=== PATIENT | male | born 1930 | race Caucasian/White ===

== ENCOUNTER 2020-09-01 15:32 | Inpatient (IN) | payer OTHER ==
--- OUTSIDE RECORDS SUMMARY | 2020-09-01 15:35 | XMS REPORT | Continuity of Care Document ---
:1930 Author Organization [facility] t Address 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 8-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 Mellitus 00:00: Practi c with with 00 e peripheral 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 [facility] bianca bianca 7-14 Family intestinal Intestinal 00:00: Pr actic obstructio Obstructio 00 e n n Hyperlipid Hyperlipid Problem Active [facility] emia emia 4-21 Family 00:00: Practic 00 e Multiple Multiple Problem Active 2018-05 Perez ge complicati Complicati 1-18 [facility] ons due to ons Due to 00:00: Pr actic type 2 Type 2 00 e diabetes Diabetes mellitus Mellitus Dementia Dementia Problem Active Perez ge 7-01 Family 00:00: Practic 00 e Essential Essential Problem Active Owen alec hypertensi Hypertensi 7- [facility] on on 00:00: Practic 00 e 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 Social History Smoking Status Start Date Stop Date Source Former Smoker Moises Billings P raccrystal Medications Ordered Filled Start Stop Current Ordering Indication Dosage Frequency Signature Comments Components Source Medication Medication Date Date Medication? Clinician (SIG) Name Name atorvastati atorvastati No 1 Q1D atorvastat [facility] n 40 mg n 40 mg in 40 mg Famil y tablet Take tablet Take tablet Practic 1 tablet 1 tablet Take 1 e every day every day tablet by oral by oral every day route. route. by oral route. donepezil 5 donepezil 5 No 1 Q1D donepezil [place] mg tablet mg tablet 5 mg Famil y Take 1 Take 1 tablet Practic tablet tablet Take 1 e every day every day tablet by oral by oral every day route at route at by oral bedtime. bedtime. route at bedtime. famotidine famotidine No 1 BID famotidine [facility] 20 mg 20 mg 20 mg Family tablet Take tablet Take tablet Practic 1 tablet 1 tablet Take 1 e twice a day twice a day tablet by oral by oral twice a route. route. day by oral route. losartan 50 losartan 50 No 1 Q1D losartan [place] mg tablet mg tablet 50 mg Fami ly Take 1 Take 1 tablet Practic tablet tablet Take 1 e every day every day tablet by oral by oral every day route. route. by oral route. metformin metformin No 1 BID metformin [facility] 500 mg 500 mg 500 mg Family tablet Take tablet Take tablet Practic 1 tablet 1 tablet Take 1 e twice a day twice a day tablet by oral by oral twice a route. route. day by oral route. omeprazole omeprazole No 1capsul Q1D omeprazole [facility] 40 mg 40 mg e(s) 40 mg Family capsule,del capsule,del capsule,de Practic ayed ayed layed e release release release Take 1 Take 1 Take 1 capsule capsule capsule every day every day every day by oral by oral by oral route. route. route. tamsulosin tamsulosin No 1capsul Q1D tamsulosin [facility] 0.4 mg 0.4 mg e(s) 0.4 mg Family capsule capsule capsule Practi c Take 1 Take 1 Take 1 e capsule capsule capsule every day every day every day by oral by oral by oral route in route in route in the the the evening. evening. evening. Immunizations Ordered Immunization Filled Immunization Date Status Commen ts Source Name Name influenza, influenza, 2018-01-29 Completed [facility] injectable, injectable, 00:00:00 Practice quadrivalent quadrivalent Vital Signs Vital Name Observation Time Observation Value Comments Source Height 2020-08-11 00:00:00 66 [in_i] [facility] BMI (Body Mass 2020-08-11 00:00:00 24.2 kg/m2 [facility] Index) Practice Body Weight 2020-08-11 00:00:00 150 [lb_av] [facility] Height 2020-05-12 00:00:00 66 [in_i] [facility] Procedures This patient has no known procedures. Plan of Care Planned Activity Planned Date Details Comments Source Future Appointment 2020-11-10 00:00:00 Moises Luevano [facility] [address]; Practice [address] [facility], [place] [address] Encounters Start End Encounter Admission Attending Care Care Encounter Source Date/Time Date/Time Type Type Clinicians Facility Department ID 2020-08-31 2020-08-31 Protective Service Specialist Milli Almonte [facility] [id number] 14:59:24 15:14:24 Visit Lab Main [place] [id number] [place] [id number] Professmervat [id number] [address] 2020-08-11 2020-08-11 [facility] [place] - [id number] [facility] 00:00:00 00:00:00 Moises Burch Famil y ORTHODONTIC ASSISTANT: [id number] - Pract [address], [email or web address] [place] [phone] , Ph. 2020-05-12 2020-05-12 [facility] [place] - [id number] [facility] 00:00:00 00:00:00 Moises Burch Famil y ORTHODONTIC ASSISTANT: [address] Medical - Pract fortunato [place], [email or web address] [address] [address] , Ph. 2019-12-17 2019-12-17 [facility] [place] - [id number] [facility] 00:00:00 00:00:00 [facility] beryl bolton, ORTHODONTIC ASSISTANT: Medical - Practi c [address] [email or web address] [facility], [address] [phone] , Ph. 2019-11-12 2019-11-12 [facility] [place] - [id number] V [facility] 00:00:00 00:00:00 [facility] beryl bolton, ORTHODONTIC ASSISTANT: Medical - Practi c [address] [email or web address] [facility], [address] [phone] , Ph. 2019-08-19 2019-08-19 Shamika [facility] [place] - [id number] [facility] 00:00:00 00:00:00 [facility] beryl rankin, ORTHODONTIC ASSISTANT: Medical - Practi c [address] [email or web address] [address] [phone] , Ph. Results This patient has no known results.
--- NOTE | 2020-09-01 17:10 | EDPHYS ---
Physician Documentation [facility] Name: Silas Kirk Age: 89 yrs Sex: Male : 1930 Arrival Date: 09/01/2020 Time: 15:33 Bed 28 Private MD: ED Physician Damien Miramontes HPI: 09/01 17:01 This 89 yrs old Male presents to ER via Wheelchair with complaints of sent by claribel Goff, abn labs. 17:01 The patient presents with scrotal pain, with swelling, with erythema. Onset: The claribel symptoms/episode began/occurred 5 day(s) ago. Modifying factors: The symptoms are alleviated by nothing, remaining still. red tender scrotum. Associated signs and symptoms: The patient has no apparent associated signs or symptoms. Severity of symptoms: At their worst the symptoms were moderate. Severity of symptoms: At their worst the symptoms were moderate in the emergency department the symptoms are unchanged. The patient has not experienced similar symptoms in the past. Historical: - Allergies: 15:57 Milk Containing Products; tw2 15:57 Aspirin; tw2 - PSHx: 15:57 Hernia repair; tw2 - Immunization history:: Adult Immunizations. - Social history:: Smoking status: . - Family history:: not pertinent. ROS: 17:01 Constitutional: Negative for fever, chills, and weight loss, Eyes: Negative for injury, claribel pain, redness, and discharge, ENT: Negative for injury, pain, and discharge, Neck: Negative for injury, pain, and swelling, Cardiovascular: Negative for chest pain, palpitations, and edema, Respiratory: Negative for shortness of breath, cough, wheezing, and pleuritic chest pain, Abdomen/GI: Negative for abdominal pain, nausea, vomiting, diarrhea, and constipation, Back: Negative for injury and pain, MS/Extremity: Negative for injury and deformity, Neuro: Negative for headache, weakness, numbness, tingling, and seizure, Psych: Negative for depression, anxiety, suicide ideation, homicidal ideation, and hallucinations, Allergy/Immunology: Negative for hives, rash, and allergies, Endocrine: Negative for neck swelling, polydipsia, polyuria, polyphagia, and marked weight changes, Hematologic/Lymphatic: Negative for swollen nodes, abnormal bleeding, and unusual bruising. 17:01 : Positive for of the left testicle and right testicle. Exam: 17:01 Constitutional: This is a well developed, well nourished patient who is awake, alert, claribel and in no acute distress. Head/Face: Normocephalic, atraumatic. Eyes: Pupils equal round and reactive to light, extra-ocular motions intact. Lids and lashes normal. Conjunctiva and sclera are non-icteric and not injected. Cornea within normal limits. Periorbital areas with no swelling, redness, or edema. ENT: Nares patent. No nasal discharge, no septal abnormalities noted. Tympanic membranes are normal and external auditory canals are clear. Oropharynx with no redness, swelling, or masses, exudates, or evidence of obstruction, uvula midline. Mucous membranes moist. Neck: Trachea midline, no thyromegaly or masses palpated, and no cervical lymphadenopathy. Supple, full range of motion without nuchal rigidity, or vertebral point tenderness. No Meningismus. Chest/axilla: Normal chest wall appearance and motion. Nontender with no deformity. No lesions are appreciated. Cardiovascular: Regular rate and rhythm with a normal S1 and S2. No gallops, murmurs, or rubs. Normal PMI, no JVD. No pulse deficits. Respiratory: Lungs have equal breath sounds bilaterally, clear to auscultation and percussion. No rales, rhonchi or wheezes noted. No increased work of breathing, no retractions or nasal flaring. Abdomen/GI: Soft, non-tender, with normal bowel sounds. No distension or tympany. No guarding or rebound. No evidence of tenderness throughout. Back: No spinal tenderness. No costovertebral tenderness. Full range of motion. Male : Normal genitalia with no discharge or lesions. MS/ Extremity: Pulses equal, no cyanosis. Neurovascular intact. Full, normal range of motion. Neuro: Awake and alert, GCS 15, oriented to person, place, time, and situation. Cranial nerves II-XII grossly intact. Motor strength 5/5 in all extremities. Sensory grossly intact. Cerebellar exam normal. Normal gait. Psych: Awake, alert, with orientation to person, place and time. Behavior, mood, and affect are within normal limits. 17:01 Skin: Appearance: Color: normal in color, Temperature: normal temperature, Moisture: normal moisture, petechiae, not noted, ecchymosis, not noted, flushing, not noted, diaphoresis is not appreciated. 18:09 ECG was reviewed by the Attending Physician. [facility] Vital Signs: 15:53 BP 83 / 47; Pulse 81; Resp 16; Temp 97.9(TE); Pulse Ox 100% on R/A; Weight 71.67 kg; tw2 16:52 BP 100 / 62; Pulse 64; Resp 17; Temp 98.0(O); Pulse Ox 99% on R/A; Pain 0/10; kg 18:00 BP 97 / 81; Pulse 81; Resp 18; Pulse Ox 100% on R/A; kg 19:00 BP 100 / 44; Pulse 62; Resp 18; Pulse Ox 100% on R/A; kg 20:09 BP 107 / 57; Pulse 69; Resp 20; Pulse Ox 99% on R/A; Pain 0/10; kg MDM: 16:28 Patient medically screened. [facility] 17:06 Differential diagnosis: UTI. Differential Diagnosis sepsis. Data reviewed: vital signs, [facility] nurses notes, lab test result(s), EKG, radiologic studies, CT scan, plain films. Data interpreted: desk monitor: rate is 64 beats/min, rhythm is regular. Test interpretation: by ED physician or midlevel provider: ECG, plain radiologic studies. Counseling: I had a detailed discussion with the patient and/or guardian regarding: the historical points, exam findings, and any diagnostic results supporting the discharge/admit diagnosis, lab results, radiology results, the need for further work-up and treatment in the hospital. 09/01 17:00 Order name: Basic Metabolic Panel [facility] 09/01 17:00 Order name: CBC with Diff [facility] 09/01 17:00 Order name: LFT's [facility] 09/01 17:00 Order name: Magnesium [facility] 09/01 17:00 Order name: NT PRO-BNP [facility] 09/01 17:00 Order name: PT-INR; Complete Time: 18:06 [facility] 09/01 17:00 Order name: Troponin (emerg Dept Use Only); Complete Time: 18:06 [facility] 09/01 17:00 Order name: Blood Culture Adult (2) [facility] 09/01 17:00 Order name: Lactate [facility] 09/01 17:00 Order name: Urine Culture [facility] 09/01 17:01 Order name: Basic Metabolic Panel; Complete Time: 18:06 EDMS 09/01 17:01 Order name: CBC with Automated Diff; Complete Time: 18:06 EDMS 09/01 17:01 Order name: Liver (Hepatic) Function; Complete Time: 18:06 EDMS 09/01 17:00 Order name: XRAY Chest (1 view); Complete Time: 18:06 [facility] 09/01 17:01 Order name: Magnesium; Complete Time: 18:06 EDMS 09/01 17:01 Order name: NT PRO-BNP; Complete Time: 18:06 EDMS 09/01 18:43 Order name: SARS-COV-2 RT PCR EDMS 09/01 21:41 Order name: Lactate Sepsis 2 HR Follow-up EDMS 09/02 00:01 Order name: Glucose, Ancillary Testing EDMS 09/02 06:01 Order name: CBC with Automated Diff EDMS 09/02 06:08 Order name: Comprehensive Metabolic Panel EDMS 09/02 06:08 Order name: Phosphorus EDMS 09/02 06:08 Order name: Magnesium EDMS 09/02 07:51 Order name: Glucose, Ancillary Testing EDMS 09/02 12:29 Order name: Glucose, Ancillary Testing EDMS 09/02 16:05 Order name: Glucose, Ancillary Testing EDMS 09/02 16:14 Order name: US EDMT 09/01 17:00 Order name: EKG; Complete Time: 17:02 [facility] 09/01 17:00 Order name: Cardiac monitoring; Complete Time: 17:46 [facility] 09/01 17:00 Order name: EKG - Nurse/Tech; Complete Time: 00:49 [facility] 09/01 17:00 Order name: IV Saline Lock; Complete Time: 17:46 [facility] 09/01 17:00 Order name: Labs collected and sent; Complete Time: 17:46 [facility] 09/01 17:00 Order name: O2 Per Protocol; Complete Time: 17:46 [facility] 09/01 17:00 Order name: O2 Sat Monitoring; Complete Time: 17:46 [facility] 09/01 17:00 Order name: Wound Care; Complete Time: 17:45 [facility] 09/01 18:09 Order name: Misc. Order: get ua, cath if needed [facility] 09/01 20:24 Order name: CONS Physician Consult EDMS EC:09 Rate is 62 beats/min. Rhythm is regular. QRS Woody is Normal. [place] interval is normal. QRS claribel interval is normal. QT interval is normal. No Q waves. T waves are Normal. No ST changes noted. Clinical impression: NSR w/ Non-specific ST/T Changes and No evidence of ischemia. Interpreted by me. Reviewed by me. Administered Medications: 17:20 Drug: Bactroban (mupirocin) Ointment 2 % 1 application {Note: scrotum.} Route: Topical; kg Site: wound; 19:07 Follow up: Response: No adverse reaction kg 18:40 Drug: NS 0.9% 1000 ml Route: IV; Rate: 1 bolus; Site: right forearm; kg 20:14 Follow up: Response: No adverse reaction; IV Status: Completed infusion; IV Intake: kg 1000ml 18:50 Drug: levofloxacin 750 mg Volume: 150 ml; Route: IVPB; Infused Over: 90 mins; Site: kg left jugular; 20:00 Follow up: Response: No adverse reaction; IV Status: Completed infusion; IV Intake: kg 150ml 18:50 Drug: NS 0.9% 1000 ml Route: IV; Rate: 1 bolus; Site: left jugular; kg 20:15 Follow up: Response: No adverse reaction; IV Status: Completed infusion; IV Intake: kg 1000ml 18:50 Drug: Pepcid (famotidine) 20 mg Route: IVP; Site: right forearm; kg 19:16 Follow up: Response: No adverse reaction kg 18:50 Drug: NS 0.9% 1000 ml Route: IV; Rate: 125 ml/hr; Site: right forearm; kg 20:15 Follow up: Response: No adverse reaction; IV Status: Completed infusion; IV Intake: kg 1000ml 19:55 Drug: vancoMYCIN 1.5 grams Route: IVPB; Rate: calculated rate; Site: right forearm; kg 22:20 Follow up: Response: No adverse reaction; IV Status: Completed infusion; IV Intake: kg 500ml Disposition: 09/01/20 17:10 Hospitalization ordered by Ricardo Ramsey for Inpatient Admission. Preliminary diagnosis are Cellulitis and acute lymphangitis of other sites - scrotum, Hypotension, Weakness, Unspecified kidney failure, Elevated white blood cell count. - Bed requested for Telemetry/MedSurg (Inpatient). - Status is Inpatient Admission. iw - Condition is Fair. - Problem is new. - Symptoms have improved. Signatures: Dispatcher [employer] EDMarla Chenara Damien Miramontes MD MD cha Williams, Irene, RN RN iw Chel Agee RN RN cg Chaparrita Figueroa RN RN 2 Mar Polanco Corrections: (The following items were deleted from the chart) 17:56 17:02 CORONAVIRUS+Z ordered. [facility] EDMT 18:07 17:10 Hospitalization Ordered by Ricardo Ramsey MD for Inpatient Admission. Preliminary [facility] diagnosis is Cellulitis and acute lymphangitis of other sites - scrotum; Hypotension; Weakness. Bed requested for Telemetry/MedSurg (Inpatient). Status is Inpatient Admission. Condition is Fair. Problem is new. Symptoms have improved. [facility] 20:05 18:07 09/01/2020 17:10 Hospitalization Ordered by Ricardo Ramsey MD for Inpatient cg Admission. Preliminary diagnosis is Cellulitis and acute lymphangitis of other sites - scrotum; Hypotension; Weakness; Unspecified kidney failure; Elevated white blood cell count. Bed requested for Telemetry/MedSurg (Inpatient). Status is Inpatient Admission. Condition is Fair. Problem is new. Symptoms have improved. [facility] 09/02 17:35 05 20:05 09/01/2020 17:10 Hospitalization Ordered by Ricardo Ramsey MD for Inpatient bd Admission. Preliminary diagnosis is Cellulitis and acute lymphangitis of other sites - scrotum; Hypotension; Weakness; Unspecified kidney failure; Elevated white blood cell count. Bed requested for [facility] ER HOLD. Status is Inpatient Admission. Condition is Fair. Problem is new. Symptoms have improved. 09/02 19:22 17:35 09/01/2020 17:10 Hospitalization Ordered by Ricardo Ramsey MD for Inpatient iw Admission. Preliminary diagnosis is Cellulitis and acute lymphangitis of other sites - scrotum; Hypotension; Weakness; Unspecified kidney failure; Elevated white blood cell count. Bed requested for Telemetry/MedSurg (Inpatient). Status is Inpatient Admission. Condition is Fair. Problem is new. Symptoms have improved. bd
--- NOTE | 2020-09-01 17:10 | ER ---
Nurse's Notes [facility] Name: Silas Kirk Age: 89 yrs Sex: Male : 1930 Arrival Date: 09/01/2020 Time: 15:33 Bed 28 Private MD: Diagnosis: Cellulitis and acute lymphangitis of other sites-scrotum;Hypotension;Weakness;Unspecified kidney failure;Elevated white blood cell count Presentation: 09/01 15:53 Chief complaint: i am his grandson, he has a bad rash on his testicles, we were sent tw2 home with a medication. the urologist after that saw him they said it was just a bad rash like a diaper rash. We went to [facility] lab because Dr. Crowe sent him for blood work and now they told us to come here because his white blood cells. Coronavirus screen: At this time, the client does not indicate any symptoms associated with coronavirus-19. Ebola Screen: Patient denies travel to an Ebola-affected area in the 21 days before illness onset. Initial Sepsis Screen: Does the patient meet any 2 criteria? No. Patient's initial sepsis screen is negative. Does the patient have a suspected source of infection? No. Patient's initial sepsis screen is negative. Risk Assessment: Do you want to hurt yourself or someone else? Patient reports no desire to harm self or others. Onset of symptoms was September 01, 2020. 15:53 Method Of Arrival: Wheelchair tw2 15:53 Acuity: VICKIE 2 tw2 Triage Assessment: 15:57 General: Appears in no apparent distress. uncomfortable, slender, Behavior is calm, tw2 cooperative, appropriate for age. Pain: Complains of pain in pelvis. Historical: - Allergies: 15:57 Milk Containing Products; tw2 15:57 Aspirin; tw2 - PSHx: 15:57 Hernia repair; tw2 - Immunization history:: Adult Immunizations. - Social history:: Smoking status: . - Family history:: not pertinent. Screenin:50 Abuse screen: Denies threats or abuse. Denies injuries from another. Nutritional ss screening: No deficits noted. Tuberculosis screening: Never had TB. 16:54 Fall Risk No fall in past 12 months (0 pts). Secondary diagnosis (15 points) impaired kg mobility, IV access (20 points). Ambulatory Aid- Crutches/Cane/Walker (15 pts). Gait- Weak (10 pts.). Mental Status- Oriented to own ability (0 pts). Total Cruz Fall Scale indicates High Risk Score (45 or more points). Fall prevention measures have been instituted. Side Rails Up X 2 Placed Close to Nursing Station Frequent Obs/Assessments Occuring Family Present and informed to notify staff if the need to leave the bedside. Sepsis Screening:. Assessment: 16:29 General: Appears in no apparent distress. Behavior is calm, cooperative, appropriate kg for age. Pain: Denies pain. Neuro: No deficits noted. Cardiovascular: No deficits noted. Respiratory: No deficits noted. 16:53 GI: No deficits noted. : Blisters noted on scrotum Bright red scrotum with yellow kg slough. EENT: No deficits noted. Derm: No deficits noted. Musculoskeletal: No deficits noted. 19:20 Reassessment: Sandra Byrd left but stated if we need anything to give him a call kg [phone]. Vital Signs: 15:53 BP 83 / 47; Pulse 81; Resp 16; Temp 97.9(TE); Pulse Ox 100% on R/A; Weight 71.67 kg; tw2 16:52 BP 100 / 62; Pulse 64; Resp 17; Temp 98.0(O); Pulse Ox 99% on R/A; Pain 0/10; kg 18:00 BP 97 / 81; Pulse 81; Resp 18; Pulse Ox 100% on R/A; kg 19:00 BP 100 / 44; Pulse 62; Resp 18; Pulse Ox 100% on R/A; kg 20:09 BP 107 / 57; Pulse 69; Resp 20; Pulse Ox 99% on R/A; Pain 0/10; kg ED Course: 15:33 Patient arrived in ED. as 15:56 Triage completed. tw2 15:56 Arm band placed on. tw2 16:28 Mar Polanco is Primary Nurse. kg 16:28 Damien Miramontes MD is Attending Physician. claribel 16:40 Inserted saline lock: 20 gauge in right wrist, using aseptic technique. Blood collected.ss 16:45 Inserted saline lock: 18 gauge in left EJ, using aseptic technique. ,using aseptic ss technique. Insertion by Damien Miramontes MD Blood collected. 16:55 Patient has correct armband on for positive identification. Fall risk band placed. Bed kg in low position. Call light in reach. Side rails up X2. Adult w/ patient. 17:08 Ricardo Ramsey MD is Hospitalizing Provider. [facility] 17:30 XRAY Chest (1 view) In Process Unspecified. EDMS 17:44 Liver (Hepatic) Function Sent. kg 17:44 Magnesium Sent. kg 17:44 Basic Metabolic Panel Sent. kg 17:45 Lactate Sent. kg 17:45 Blood Culture Adult (2) Sent. kg 17:46 Basic Metabolic Panel Sent. kg 17:46 CBC with Diff Sent. kg 17:46 Magnesium Sent. kg 17:46 LFT's Sent. kg 0505 00:05 No provider procedures requiring assistance completed. Patient admitted, IV remains in mg2 place. Administered Medications: 0504 17:20 Drug: Bactroban (mupirocin) Ointment 2 % 1 application {Note: scrotum.} Route: Topical; kg Site: wound; 19:07 Follow up: Response: No adverse reaction kg 18:40 Drug: NS 0.9% 1000 ml Route: IV; Rate: 1 bolus; Site: right forearm; kg 20:14 Follow up: Response: No adverse reaction; IV Status: Completed infusion; IV Intake: kg 1000ml 18:50 Drug: levofloxacin 750 mg Volume: 150 ml; Route: IVPB; Infused Over: 90 mins; Site: kg left jugular; 20:00 Follow up: Response: No adverse reaction; IV Status: Completed infusion; IV Intake: kg 150ml 18:50 Drug: NS 0.9% 1000 ml Route: IV; Rate: 1 bolus; Site: left jugular; kg 20:15 Follow up: Response: No adverse reaction; IV Status: Completed infusion; IV Intake: kg 1000ml 18:50 Drug: Pepcid (famotidine) 20 mg Route: IVP; Site: right forearm; kg 19:16 Follow up: Response: No adverse reaction kg 18:50 Drug: NS 0.9% 1000 ml Route: IV; Rate: 125 ml/hr; Site: right forearm; kg 20:15 Follow up: Response: No adverse reaction; IV Status: Completed infusion; IV Intake: kg 1000ml 19:55 Drug: vancoMYCIN 1.5 grams Route: IVPB; Rate: calculated rate; Site: right forearm; kg 22:20 Follow up: Response: No adverse reaction; IV Status: Completed infusion; IV Intake: kg 500ml Intake: 20:00 IV: 150ml; Total: 150ml. kg 20:14 IV: 1000ml; Total: 1150ml. kg 20:15 IV: 1000ml; Total: 2150ml. kg 20:15 IV: 1000ml; Total: 3150ml. kg 22:20 IV: 500ml; Total: 3650ml. kg Outcome: 17:10 Decision to Hospitalize by Provider. claribel 09/02 00:06 Admitted to ER Hold. Please see [facility] for further documentation. mg2 Condition: stable Instructed on the need for admit, Demonstrated understanding of instructions. 19:22 Patient left the ED. iw Signatures: Dispatcher [employer] EDDamien Cotton MD MD cha Martinez, Amelia as Williams, Irene, RN RN iw Fanny Bright RN RN ss Chaparrita Figueroa RN RN tw2 Garry Wagner RN RN mg2 Mar Polanco kg Corrections: (The following items were deleted from the chart) 09/01 17:56 17:45 CORONAVIRUS+MR.LAB.BRZ drawn and sent. kg EDMS
[2020-09-01 17:33] LABS: Absolute Lymphocytes (CBC) 6.8 K/uL (0.7-4.9); Basophils % 0.5 % (0-1.3); Hematocrit 37.7 % (39.6-49.0); MPV 8.6 fL (7.6-11.3); RBC Red Blood Cell Count 3.91 M/uL (4.33-5.43)
[2020-09-01 17:37] LABS: Protime INR 1.08
[2020-09-01 17:51] LABS: ALT/SGPT 32 U/L (12-78); AST/SGOT 19 U/L (15-37); Albumin 3.5 g/dL (3.4-5.0); Alkaline Phosphatase 81 U/L (45-117); BUN Blood Urea Nitrogen 40 mg/dL (7-18); Bicarbonate 26 mmol/L (21-32); Bilirubin Direct 0.1 mg/dL (0-0.2); Bilirubin Total 0.4 mg/dL (0.2-1.0); Glucose Level 165 mg/dL (74-106); Magnesium 2.2 mg/dL (1.8-2.4); NT PRO-BNP 227 pg/mL (<450); Potassium 4.3 mmol/L (3.5-5.1); Protein, Total 6.5 g/dL (6.4-8.2); Sodium Level 136 mmol/L (136-145); Troponin (Emerg Dept Use Only) < 0.02 ng/mL (0.0-0.045)
--- NOTE | 2020-09-01 17:58 | RAD REPORT ---
EXAM DESCRIPTION: Bacilio Single View09/01/2020 5:30 pm CLINICAL HISTORY: Cough COMPARISON: 2017 FINDINGS: Moderate hiatal hernia. Left basilar opacity may represent atelectasis. Right lung appears clear of acute infiltrate. Heart is normal size
[2020-09-01] MEDS ORDERED: NA CHLORIDE 0.9% 250 ML ONE (18:37)
[2020-09-01] MEDS ORDERED: VANCOMYCIN 1 GM/VIAL ONE ×3 (18:37→20:07)
[2020-09-01] MEDS ORDERED: Levofloxacin 750mg IV 750 MG/150 ML BAG IV ONE (18:38)
[2020-09-01] MEDS ORDERED: FAMOTIDINE 20 MG/2 ML VIAL IV ONE (18:38)
[2020-09-01] MEDS ORDERED: NA CHLORIDE 0.9% 3,000 ML ONE (18:38)
[2020-09-01] MEDS ORDERED: NA CHLORIDE 0.9% 500 ML ONE (19:23)
[2020-09-01 22:40] VITALS: BMI 21.4
[2020-09-01] MEDS ORDERED: ONDANSETRON 4 MG/2 ML VIAL IV PRN (23:10)
[2020-09-01] MEDS: NA CHLORIDE 0.9% 1,000 ML IV SCH (23:10)
[2020-09-01] MEDS ORDERED: ACETAMINOPHEN 500 MG TAB PO PRN (23:10)
[2020-09-01] MEDS ORDERED: Pharmacy Consult 1 EA XX PRN (23:10)
[2020-09-01] MEDS: INSULIN -REGULAR HUMAN 50 UNIT/0.5 ML ML SQ SCH (23:10)
--- NOTE | 2020-09-02 00:18 | P.HP ---
Certification for Inpatient Patient admitted to: Inpatient With expected LOS: >2 Midnights Patient will require the following post-hospital care: Home Health Services Practitioner: I am a practitioner with admitting privileges, knowledge of patient current condition, hospital course, and medical plan of care. Services: Services provided to patient in accordance with Admission requirements found in Title 42 Section 412.3 of the Code of Federal Regulations Patient History Date of Service: 09/01/20 Primary Care Provider: Milena Reason for admission: scrotal cellulitis History of Present Illness: Mr. Kirk is an 89 year old male with DM and HTN here today with scrotal pain, swelling ,and erythema. He was started on oral antibiotics on 08/24, and returned to clinic yesterday. He was notified this morning that his WBC were elevated to 16.5 and to report to the Ed. He denies night sweats, chills, nausea, vomiting. Sandra says he has been complaining of weakness and he was initially hypotensive on arrival. Sandra reports patient lives with his ; he has only been showering once a week and has not been changing his adult diapers often enough. BUN 40, Cr 1.52, GFR 43. Glu 165. Allergies aspirin Allergy (Verified 02/09/17 09:12) swelling to throat Milk Containing Products Allergy (Verified 02/09/17 09:12) swelling Home Medications: Albuterol Inhaler [Ventolin Inhaler] 2 puff IH Q6H PRN 01/07/16 Donepezil [Aricept] 5 mg PO BEDTIME 01/07/16 Losartan Potassium [Cozaar] 50 mg PO BID 01/07/16 Metformin HCl [Glucophage] 500 mg PO BIDWM 01/07/16 Omeprazole [Prilosec] 40 mg PO DAILY 01/07/16 Fluticasone/Vilanterol [Breo Ellipta 100-25 Mcg INH] 1 each IH BID 02/09/17 - Past Medical/Surgical History Has patient received pneumonia vaccine in the past: Yes Diabetic: No -: DM -: HTN -: Hernia repair - Family History Family History: Reviewed- Non-Contributory - Social History Smoking Status: Never smoker Alcohol use: No CD- Drugs: No Caffeine use: Yes Place of Residence: Home Review of Systems General: Unremarkable Eyes: Unremarkable ENT: Unremarkable Respiratory: Unremarkable Cardiovascular: Unremarkable Gastrointestinal: Unremarkable Genitourinary: Unremarkable Musculoskeletal: Unremarkable Integumentary: Other (scrotal erythema, edema, drainage) Neurological: Unremarkable Lymphatics: Unremarkable Physical Examination - Physical Exam General: Alert, In no apparent distress, Oriented x3, Cooperative HEENT: Atraumatic, Normocephalic, PERRLA, Mucous membr. moist/pink, EOMI, Sclerae nonicteric Neck: Supple, 2+ carotid pulse no bruit, JVD not distended, No Thyromegaly, No LAD Respiratory: Clear to auscultation bilaterally, Normal air movement Cardiovascular: No edema, Normal pulses, Regular rate/rhythm, Normal S1 S2, No gallops, No rubs, No murmurs Capillary refill: <2 Seconds Gastrointestinal: Normal bowel sounds, Soft and benign, Non-distended, No ascites, No tenderness, No masses, No rebound, No guarding Musculoskeletal: No clubbing, No swelling, No contractures, No erythema, No tenderness, No warmth Integumentary: No rashes, No significant lesion, No cyanosis, Skin breakdown, Tenderness/swelling, Erythema, Warmth Neurological: Normal gait, Normal speech, Normal strength at 5/5 x4 extr, Normal tone, Sensation intact, Cranial nerves 3-12 intact, Normal affect Lymphatics: No axilla or inguinal lymphadenopathy External genitalia: No lesions, No masses, Edema, Tenderness Rectal: Deferred - Studies Laboratory Data (last 24 hrs) 09/01/20 17:10: PT 12.4, INR 1.08 09/01/20 17:10: WBC 16.50 H, Hgb 12.4 L, Hct 37.7 L, Plt Count 226 09/01/20 17:10: Sodium 136, Potassium 4.3, BUN 40 H, Creatinine 1.52 H, Glucose 165 H, Magnesium 2.2, Total Bilirubin 0.4, AST 19, ALT 32, Alkaline Phosphatase 81 Male Exam - Male Exam Inguinal exam: No hernias Scrotum: Lesions, Edema, Tenderness Assessment and Plan - Problems (Diagnosis) (1) Cellulitis of scrotum Current Visit: Yes Status: Acute (2) HTN (hypertension) Current Visit: Yes Status: Chronic Qualifiers: Hypertension type: essential hypertension Qualified Code(s): I10 - Essential (primary) hypertension (3) Type 2 diabetes mellitus Current Visit: Yes Status: Chronic Qualifiers: Diabetes mellitus mcc insulin use: without mcc use Diabetes mellitus complication status: with other specified complication Qualified Code(s): E11.69 - Type 2 diabetes mellitus with other specified complication - Plan infectious disease consulted, blood cultures pending continue vancomycin and levaquin renal consulted, unknown baseline kidney function, EDITH vs CKD continue to monitor BP, restart home medications sliding scale insulin and Accuchecks home health consult for assistance with ADLs and antibiotics Discharge Plan: Home Plan to discharge in: 72 Hours - Advance Directives Does patient have a Living Will: No Does patient have a Durable POA for Healthcare: No - Code Status/Comfort Care Code Status Assessed: Yes (full code) Critical Care: No Time Spent Managing Pts Care (In Minutes): 70
[2020-09-02] MEDS: HEPARIN 5000 UNIT/ML 1 ML VIAL SQ SCH ×3 (01:00→16:21)
[2020-09-02] MEDS ORDERED: NA CHLORIDE 0.9% 1,000 ML ONE (01:11)
[2020-09-02] MEDS ORDERED: HEPARIN 5000 UNIT/ML 1 ML VIAL ONE ×3 (02:19→16:28)
[2020-09-02 05:55] LABS: Absolute Lymphocytes (CBC) 6.4 K/uL (0.7-4.9); Basophils % 0.3 % (0-1.3); Hematocrit 38.3 % (39.6-49.0); MPV 7.9 fL (7.6-11.3); RBC Red Blood Cell Count 3.94 M/uL (4.33-5.43)
[2020-09-02 06:08] LABS: Bilirubin Total 0.5 mg/dL (0.2-1.0); Magnesium 2.2 mg/dL (1.8-2.4); Phosphorus 4.1 mg/dL (2.5-4.9); Protein, Total 5.9 g/dL (6.4-8.2)
[2020-09-02] MEDS: INSULIN -REGULAR HUMAN 50 UNIT/0.5 ML ML SQ SCH ×4 (07:30→21:00)
--- NOTE | 2020-09-02 09:00 | P.CNS ---
Date of Consult: 09/02/20 Reason for Consult: EDITH/ CKD Requesting Physician: Ricardo Ramsey Primary Care Provider: Milena Chief Complaint: scrotal cellulitis History of Present Illness: Mr. Kirk is an 89 year old male with DM and HTN here today with scrotal pain, swelling ,and erythema. He was started on oral antibiotics on 08/24, and returned to clinic yesterday. He was notified this morning that his WBC were elevated to 16.5 and to report to the Ed. He denies night sweats, chills, nausea, vomiting. Sandra says he has been complaining of weakness and he was initially hypotensive on arrival. Sandra reports patient lives with his ; he has only been showering once a week and has not been changing his adult diapers often enough. 17:01 This 89 yrs old Male presents to ER via Wheelchair with complaints of sent by claribel Goff, bryanna hughes. 17:01 The patient presents with scrotal pain, with swelling, with erythema. Onset: The claribel symptoms/episode began/occurred 5 day(s) ago. Modifying factors: The symptoms are alleviated by nothing, remaining still. red tender scrotum. Associated signs and symptoms: The patient has no apparent associated signs or symptoms. Severity of symptoms: At their worst the symptoms were moderate. Severity of symptoms: At their worst the symptoms were moderate in the emergency department the symptoms are unchanged. The patient has not experienced similar symptoms in the past. Allergies aspirin Allergy (Verified 02/09/17 09:12) swelling to throat Milk Containing Products Allergy (Verified 02/09/17 09:12) swelling Home medications list reviewed: Yes Home Medications: Albuterol Inhaler [Ventolin Inhaler] 2 puff IH Q6H PRN 01/07/16 Donepezil [Aricept] 5 mg PO BEDTIME 01/07/16 Losartan Potassium [Cozaar] 50 mg PO BID 01/07/16 Metformin HCl [Glucophage] 500 mg PO BIDWM 01/07/16 Atorvastatin Calcium 1 tab PO BEDTIME 09/02/20 Triamterene/Hydrochlorothiazid [Triamterene-Hctz 37.5-25 mg Cp] 1 tab PO DAILY 09/02/20 - Past Medical/Surgical History Diabetic: No -: DM -: HTN -: Hernia repair - Social History Alcohol use: No CD- Drugs: No Caffeine use: Yes Place of Residence: Home Review of Systems 10-point ROS is otherwise unremarkable General: Weakness, Malaise Integumentary: Rash Neurological: Weakness Physical Examination Temp Pulse Resp BP Pulse Ox 98.5 F 78 18 126/65 100 09/02/20 04:00 09/02/20 04:00 09/02/20 00:00 09/02/20 04:00 09/02/20 04:00 General: In no apparent distress, Cooperative HEENT: Atraumatic Neck: Supple Respiratory: Clear to auscultation bilaterally Cardiovascular: No edema, Regular rate/rhythm Gastrointestinal: Soft and benign, Non-distended Musculoskeletal: No clubbing, No contractures Integumentary: No rashes, No cyanosis Neurological: Normal speech External genitalia: Tenderness, Other (Erythema) Laboratory Data (last 24 hrs) 09/01/20 17:10: PT 12.4, INR 1.08 09/01/20 17:10: WBC 16.50 H, Hgb 12.4 L, Hct 37.7 L, Plt Count 226 09/01/20 17:10: Sodium 136, Potassium 4.3, BUN 40 H, Creatinine 1.52 H, Glucose 165 H, Magnesium 2.2, Total Bilirubin 0.4, AST 19, ALT 32, Alkaline Phosphatase 81 Imagings Data: EXAM DESCRIPTION: Bacilio Single View09/01/2020 5:30 pm CLINICAL HISTORY: Cough COMPARISON: 2017 FINDINGS: Moderate hiatal hernia. Left basilar opacity may represent atelectasis. Right lung appears clear of acute infiltrate. Heart is normal size Conclusions/Impression: DEITH may be due to hypovolemia vs ATN CKD III -No NSAIDs -Change IVF to LR @100 -Consider pacheco insertion if the renal fx continues to worsen Acidosis -Change IVF LR Hypocalcemia -Start Vitamin D Hypotension episodes Anemia in chronic illness -Monitor H&H Scrotal cellulitis -Continue Vancomycin and Levaquin -Monitor vanco level. May need to adjust dose due to worsening renal fx. Thank you kindly for the consultation.
[2020-09-02] MEDS: NA CHLORIDE 0.9% 1,000 ML IV SCH (09:10)
[2020-09-02] MEDS: Ringers Lactate 1,000 ML IV SCH ×2 (12:52→20:00)
[2020-09-02] MEDS ORDERED: Ringers Lactate 1,000 ML IV ONE (12:59)
[2020-09-02] MEDS: SILVER SULFADIAZINE 1% 50 GM TOP SCH ×2 (14:52→21:00)
--- NOTE | 2020-09-02 15:46 | CON ---
History Of Present Illness: The patient is an 89-year-old male. I was consulted for cellulitis of s crotal area. The patient is not able to give much history. Most of the history was obtained through the medical records. The patient has significant history of diabetes mellitus and hypertension. Co sharon in with scrotal pain, swelling and redness. The patient was started on oral antibiotics on Apri l 26. Went back to the clinic. Prior to coming to the emergency room, the patient was found to have elevated WBC of 16,500 and was transferred to emergency room for further evaluation and management. The patient as per record had no nausea, vomiting, sweats, chills. Past Medical History: As per HPI. Social History: Nonsmoker, nondrinker. Family History: Noncontributory. Medications: Vancomycin and Levaquin. See MAR for other medications. Allergies: ASPIRIN AND MILK CONTAINING PRODUCTS. Review of Systems: Unable to obtain. Physical Examination: General: This is an 89-year-old male, lying in bed, not in any acute cardiopulmonary distress. Vital Signs: Temperature 98, pulse 78, respirations 16, blood pressure 126/65. HEENT: Unremarkable. Neck: Supple. Lungs: Clear to auscultation. Heart: S1, S2. Regular. Abdomen: Soft, nontender. Bowel sounds present. Extremity: No edema. Genitourinary: Scrotal area shows erythematous changes with swelling. Diagnostic Studies: Chest x-ray shows left basilar opacity, may represent atelectasis. No infiltrat es noted. Laboratory Data: Shows WBC 16,400, hemoglobin 12.6, platelets are 203. Chemistry shows sodium 138, potassium 4, chloride 109, bicarb 19, BUN is 47, creatinine 2.3, glucose is 113, albumin is 3. Micro data; blood cultures are pending. Urine culture is pending. Assessment And Plan: This is an 89-year-old male, coming in with cellulitis of scrotal area with sig nificant history of diabetes mellitus and hypertension, chest x-ray showing bibasilar opacities with left-sided atelectasis. The patient also has leukocytosis of 16,000 and anemia. The patient also emerson s renal failure with GFR of 26, lactic acid is 2.3, and protein-calorie malnourishment with albumin o f 3. Continue current antibiotic pending culture results. Total antibiotic course should be 2 weeks . Keep the scrotal area elevated and apply Silvadene to the scrotal area daily and whenever soiled, monitor for signs of infection. We will follow the patient closely. Nutritional support for protein -calorie malnourishment. Adjust antibiotic as the patient has renal insufficiency. Continue support bianca care. We will follow the patient closely. Thank you Dr. Ramsey for consult. NF/MODL Voice ID: [id number] Report ID: [id number]
--- NOTE | 2020-09-02 16:13 | RAD REPORT ---
EXAM DESCRIPTION: US - Renal Ultrasound-Complete - 09/02/2020 3:54 pm CLINICAL HISTORY: EDITH COMPARISON: No comparisons FINDINGS: The right kidney measures 12.0 x 4.5 x 4.6 cm. The left kidney measures 12.5 x 6.0 x 4.7 cm. Cortical thickness is normal. Both kidneys show an increase in cortical echogenicity likely medic al renal disease. No hydronephrosis or suspicious renal mass. A 4.6 centimeter cyst is present anteri or mid right kidney. No bladder wall thickening or mass. No intraluminal stone or mass. IMPRESSION: No hydronephrosis or suspicious renal mass. A 4.6 centimeter thin-walled anechoic right renal cyst is present. Bilateral increased cortical echogenicity is present and may reflect underlying medical renal disease .
[2020-09-02] MEDS ORDERED: Levofloxacin 250mg IV 250 MG/50 ML BAG IV SCH (18:00)
[2020-09-02 20:34] LABS: Potassium 4.6 mmol/L (3.5-5.1)
[2020-09-03] MEDS: HEPARIN 5000 UNIT/ML 1 ML VIAL SQ SCH ×3 (03:22→16:42)
[2020-09-03 04:00] LABS: Absolute Lymphocytes (CBC) 5.4 K/uL (0.7-4.9); Basophils % 0.3 % (0-1.3); Hematocrit 36.3 % (39.6-49.0); Lymphocytes % 41.2 % (15.3-44.8); MPV 8.2 fL (7.6-11.3)
[2020-09-03 04:52] LABS: Potassium 4.1 mmol/L (3.5-5.1)
[2020-09-03] MEDS ORDERED: VANCOMYCIN 1.25 GM in NA CHLORIDE 0.9% 250 ML IVPB SCH (06:00)
[2020-09-03] MEDS: Ringers Lactate 1,000 ML IV SCH (06:03)
--- NOTE | 2020-09-03 07:22 | EKG ---
Test Date: 2020-09-01 Test Time: 23:44:16 Dewaxer: MARIBEL MEASUREMENT RESULTS: Intervals: Rate: 59 IN: 124 QRSD: 82 QT: 464 QTc: 459 [place]: P: 74 IN: 124 QRS: 67 T: 50 INTERPRETIVE STATEMENTS: * Pediatric ECG analysis * Sinus bradycardia Low voltage QRS Compared to ECG 09/01/2020 18:00:08 Sinus rhythm no longer present Electronically Signed On 09-03-20 07:18:19 CDT by Tex Bennett
--- NOTE | 2020-09-03 07:23 | EKG ---
Test Date: 2020-09-01 Test Time: 18:00:08 Video Player Mechanic: ROSA MEASUREMENT RESULTS: Intervals: Rate: 62 MI: 150 QRSD: 86 QT: 462 QTc: 468 [place]: P: 70 MI: 150 QRS: 81 T: 58 INTERPRETIVE STATEMENTS: Normal sinus rhythm Low voltage QRS Borderline ECG Compared to ECG 02/09/2017 09:41:07 No significant changes Electronically Signed On 09-03-20 07:18:32 CDT by Tex Bennett
[2020-09-03] MEDS: INSULIN -REGULAR HUMAN 50 UNIT/0.5 ML ML SQ SCH ×4 (07:30→21:00)
[2020-09-03] MEDS: CALCITROL 0.25 MCG CAP PO SCH (09:21)
[2020-09-03] MEDS: VITAMIN D 5,000 UNIT CAP PO SCH (09:21)
[2020-09-03] MEDS: SILVER SULFADIAZINE 1% 50 GM TOP SCH ×2 (09:33→21:16)
--- NOTE | 2020-09-03 10:40 | P.PN ---
Subjective Date of Service: 09/03/20 Primary Care Provider: Milena Chief Complaint: scrotal cellulitis Patient seen examined at bedside, patient is very confused. He is requesting to leave. Review of Systems 10-point ROS is otherwise unremarkable Physical Examination - Vital Signs Temperature: 97.7 F Blood Pressure: 136/63 Pulse: 65 Respirations: 15 Pulse Ox (%): 99 - Physical Exam General: Confused HEENT: Atraumatic Neck: Supple, 2+ carotid pulse no bruit Respiratory: Clear to auscultation bilaterally, Normal air movement Cardiovascular: No edema, Normal pulses, Regular rate/rhythm Capillary refill: <2 Seconds Gastrointestinal: Normal bowel sounds, Soft and benign Musculoskeletal: No clubbing, No swelling, No contractures Integumentary: Other (scrotal cellulitis-swelling and redness.) - Studies Temp Pulse Resp BP Pulse Ox 97.7 F 65 15 136/63 99 09/03/20 08:00 09/03/20 08:00 09/03/20 08:00 09/03/20 08:00 09/03/20 08:00 Active Medications Acetaminophen (Acetaminophen 500 Mg Tab) 500 mg PO Q4HP PRN PRN Reason: Pain scale 2-4 (Mild) Calcitriol (Calcitrol 0.25 Mcg Cap) 0.5 mcg PO DAILY [facility] Last Admin: 09/03/20 09:21 Dose: 0.5 mcg Documented by: Cholecalciferol (Vitamin D 5,000 Unit Cap) 5,000 unit PO DAILY [facility] Last Admin: 09/03/20 09:21 Dose: 5,000 unit Documented by: Heparin Sodium (Porcine) (Heparin 5000 Unit/Ml 1 Ml Vial) 5,000 unit SQ Q8HR [facility] Last Admin: 09/03/20 09:22 Dose: 5,000 unit Documented by: Levofloxacin/Dextrose (Levaquin 250mg/50 Ml Ivpb) 250 mg in 50 mls @ 50 mls/hr IV Q24H [facility]; Protocol Last Admin: 09/02/20 17:04 Dose: 50 mls Documented by: Vancomycin HCl 1.25 gm/ Sodium (Chloride) 250 mls @ 150 mls/hr IVPB Q36H [facility] Last Admin: 09/03/20 06:03 Dose: 250 mls Documented by: Insulin Human Regular (Insulin -Regular Human 50 Unit/0.5 Ml Ml) 0 unit SQ ACHS [facility]; Protocol Last Admin: 09/03/20 07:30 Dose: Not Given Documented by: Ondansetron HCl (Ondansetron 4 Mg/2 Ml Vial) 4 mg IV Q6HP PRN PRN Reason: NAUSEA / VOMITING Silver Sulfadiazine (Silver Sulfadiazine 1% 50 Gm) 1 appl TOP BID [facility] Last Admin: 09/03/20 09:33 Dose: 1 appl Documented by: Sodium Chloride (Flush Normal Saline 10 Ml) 10 ml IV BID [facility] Last Admin: 09/03/20 09:00 Dose: Not Given Documented by: Assessment And Plan - Plan Antibiotics: vancomycin start: 09/02 stop:-- Levaquin start: 09/02 stop: -- Assessment: -cellulitis of scrotal area -diabetes mellitus - hypertension -chest x-ray showing bibasilar opacities with left-sided atelectasis -renal faliure -protein-calorie malnourishment with albumin of 3 Plan: -continue current antibiotic therapy. Total antibiotic course should be 2 weeks. Adjust antibiotic as the patient has renal insufficiency. Keep the scrotal area elevated and apply Silvadene to the scrotal area daily and whenever soiled, monitor for signs of infection. -blood cultures negative, UA culture pending. -Nutritional support for protein-calorie malnourishment. -medical management per primary team -continue to monitor CBC and BMP-leukocytosis present however is down trending. -continue to monitor for signs of infection Plan of care discussed with Dr. Agee. Thank you Dr. Ramsey for consult.
--- NOTE | 2020-09-03 14:38 | P.PN ---
Subjective Date of Service: 09/02/20 Patient doing well with no new changes. Symptoms are improving. Still with some erythema on the testicles. Also with tenderness. Continue with IV antibiotic and antifungal therapy Review of Systems 10-point ROS is otherwise unremarkable Physical Examination - Vital Signs Temperature: 97.8 F Blood Pressure: 146/71 Pulse: 77 Respirations: 15 Pulse Ox (%): 98 - Physical Exam General: Alert, In no apparent distress, Oriented x3 HEENT: Atraumatic, PERRLA, EOMI Neck: Supple, JVD not distended Respiratory: Clear to auscultation bilaterally, Normal air movement Cardiovascular: Regular rate/rhythm, Normal S1 S2 Gastrointestinal: Normal bowel sounds, No tenderness Musculoskeletal: No tenderness Integumentary: No rashes Neurological: Normal speech, Normal tone, Normal affect Lymphatics: No axilla or inguinal lymphadenopathy External genitalia: Other (Erythema and tenderness of the scrotum) - Studies Medications List Reviewed: Yes Assessment & Plan - Problems (Diagnosis) (1) Tinea cruris Current Visit: Yes Status: Acute (2) Cellulitis of scrotum Current Visit: Yes Status: Acute (3) HTN (hypertension) Current Visit: Yes Status: Chronic Qualifiers: Hypertension type: essential hypertension Qualified Code(s): I10 - Essential (primary) hypertension (4) Type 2 diabetes mellitus Current Visit: Yes Status: Chronic Qualifiers: Diabetes mellitus fci insulin use: without hris specialist use Diabetes mellitus complication status: with other specified complication Qualified Code(s): E11.69 - Type 2 diabetes mellitus with other specified complication - Plan 1. Continue with IV antibiotic 2. Continue with monitoring scrotum closely 3. If symptoms worsen urologic follow-up 4. IV as tolerated 5. Monitor CBC 6. Strict blood sugar monitoring 7. Pain control 8. GI and DVT prophylaxis Discharge Plan: Home Plan to discharge in: Greater than 2 days - Advance Directives Does patient have a Living Will: No Does patient have a Durable POA for Healthcare: No - Code Status/Comfort Care Code Status Assessed: Yes Code Status: Full Code Critical Care: No Time Spent Managing PTS Care (In Minutes): 35
--- NOTE | 2020-09-03 14:39 | P.PN ---
Date of Service: 09/03/20 Subjective Patient is improving. Grandson at bedside. Continue with current plan of care at this time. Review of Systems 10-point ROS is otherwise unremarkable Physical Examination - Vital Signs Reviewed - Physical Exam General: Alert, In no apparent distress, Oriented x3 Respiratory: Clear to auscultation bilaterally, Normal air movement Cardiovascular: Regular rate/rhythm, Normal S1 S2 Gastrointestinal: Normal bowel sounds, No tenderness Neurological: Normal speech, Normal tone, Normal affect External genitalia: Other (Erythema and tenderness of the scrotum) Assessment & Plan - Problems (Diagnosis) (1) Tinea cruris Current Visit: Yes Status: Acute (2) Cellulitis of scrotum Current Visit: Yes Status: Acute (3) HTN (hypertension) Current Visit: Yes Status: Chronic Qualifiers: Hypertension type: essential hypertension Qualified Code(s): I10 - Essential (primary) hypertension (4) Type 2 diabetes mellitus Current Visit: Yes Status: Chronic Qualifiers: Diabetes mellitus nursing home insulin use: without nursing home use Diabetes mellitus complication status: with other specified complication Qualified Code(s): E11.69 - Type 2 diabetes mellitus with other specified complication - Plan 1. Continue with IV antibiotic 2. Continue with monitoring scrotum closely 3. Outpatient urologic follow-up 4. Hep-Lock IV 5. Monitor CBC 6. Strict blood sugar monitoring 7. Pain control 8. GI and DVT prophylaxis
[2020-09-03] MEDS ORDERED: FLUCONAZOLE 200mg IVPB 200 MG/100 ML BAG IV SCH (15:00)
[2020-09-03] MEDS ORDERED: ALBUTEROL INHALER 60 PUFF/8 GM IH PRN (20:12)
[2020-09-03] MEDS ORDERED: LORAZEPAM 0.5 MG TABLET PO ONE (20:15)
[2020-09-03] MEDS ORDERED: DONEPEZIL HCL 5 MG TAB PO SCH (21:00)
[2020-09-03] MEDS ORDERED: ATORVASTATIN 40 MG TAB PO SCH (21:00)
--- NOTE | 2020-09-03 21:00 | P.PN ---
Date of Service: 09/03/20 Vital Signs Temp Pulse Resp BP Pulse Ox 97.9 F 63 16 147/70 H 98 09/03/20 20:00 09/03/20 20:00 09/03/20 20:00 09/03/20 20:00 09/03/20 20:00 Medications Acetaminophen (Acetaminophen 500 Mg Tab) 500 mg PO Q4HP PRN PRN Reason: Pain scale 2-4 (Mild) Albuterol Sulfate (Albuterol Inhaler 60 Puff/8 Gm) 2 puff IH Q6H PRN PRN Reason: SHORTNESS OF BREATH Atorvastatin Calcium (Atorvastatin 40 Mg Tab) 40 mg PO BEDTIME EDDI Calcitriol (Calcitrol 0.25 Mcg Cap) 0.5 mcg PO DAILY EDDI Last Admin: 09/03/20 09:21 Dose: 0.5 mcg Documented by: Cholecalciferol (Vitamin D 5,000 Unit Cap) 5,000 unit PO DAILY EDDI Last Admin: 09/03/20 09:21 Dose: 5,000 unit Documented by: Donepezil HCl (Donepezil Hcl 5 Mg Tab) 5 mg PO BEDTIME EDDI Heparin Sodium (Porcine) (Heparin 5000 Unit/Ml 1 Ml Vial) 5,000 unit SQ Q8HR EDDI Last Admin: 09/03/20 16:42 Dose: 5,000 unit Documented by: Vancomycin HCl 1.25 gm/ Sodium (Chloride) 250 mls @ 150 mls/hr IVPB Q36H EDDI Last Admin: 09/03/20 06:03 Dose: 250 mls Documented by: Fluconazole (Diflucan 200 Mg/100 Ml Ivpb (Premix)) 200 mg in 100 mls @ 100 mls/hr IV Q24H EDDI; Protocol Last Admin: 09/03/20 15:07 Dose: 100 mls Documented by: Insulin Human Regular (Insulin -Regular Human 50 Unit/0.5 Ml Ml) 0 unit SQ ACHS EDDI; Protocol Last Admin: 09/03/20 16:18 Dose: Not Given Documented by: Nystatin (Nystatin Pwdr [id number] Unit/Gm) 1 appl TOP BID EDDI Silver Sulfadiazine (Silver Sulfadiazine 1% 50 Gm) 1 appl TOP BID EDDI Last Admin: 09/03/20 09:33 Dose: 1 appl Documented by: Sodium Chloride (Flush Normal Saline 10 Ml) 10 ml IV BID EDDI Last Admin: 09/03/20 09:00 Dose: Not Given Documented by: Microbiology Results 09/01/20 17:21 Blood - Blood Aerobic Blood Culture - Preliminary No growth in 24 hours. 09/01/20 17:21 Blood - Blood Anaerobic Blood Culture - Preliminary No growth in 24 hours. 09/01/20 17:10 Blood - Blood Aerobic Blood Culture - Preliminary No growth in 24 hours. 09/01/20 17:10 Blood - Blood Anaerobic Blood Culture - Preliminary No growth in 24 hours. Assessment/ Plan: Nephrology No acute cardiac or pulmonary complaints. No CP or SOB. No acute events overnight. Vitals, medications, blood work and imaging reviewed in the chart. General: In no apparent distress, Cooperative HEENT: Atraumatic Neck: Supple Respiratory: Clear to auscultation bilaterally Cardiovascular: No edema, Regular rate/rhythm Gastrointestinal: Soft and benign, Non-distended Musculoskeletal: No clubbing, No contractures Integumentary: No rashes, No cyanosis Neurological: Normal speech External genitalia: Tenderness, Other (Erythema) Laboratory Data (last 24 hrs) 09/01/20 17:10: PT 12.4, INR 1.08 09/01/20 17:10: WBC 16.50 H, Hgb 12.4 L, Hct 37.7 L, Plt Count 226 09/01/20 17:10: Sodium 136, Potassium 4.3, BUN 40 H, Creatinine 1.52 H, Glucose 165 H, Magnesium 2.2, Total Bilirubin 0.4, AST 19, ALT 32, Alkaline Phosphatase 81 Imagings Data: EXAM DESCRIPTION: [facility] Single View09/01/2020 5:30 pm CLINICAL HISTORY: Cough COMPARISON: 2017 FINDINGS: Moderate hiatal hernia. Left basilar opacity may represent atelectasis. Right lung appears clear of acute infiltrate. Heart is normal size Conclusions/Impression: EDITH suspicious for ATN CKD III -No NSAIDs -Discontinue IVF -Consider pacheco insertion if the renal fx continues to worsen Acidosis Hypocalcemia -Continue Vitamin D Hypotension episodes DM II with CKD -RISS Anemia in chronic illness -Monitor H&H Scrotal cellulitis -Continue Vancomycin and Levaquin -Monitor vanco level. Renal dosing. Case reviewed with Dr. Ramsey
[2020-09-03] MEDS: NYSTATIN PWDR 100000 UNIT/GM TOP SCH (23:30)
[2020-09-04] MEDS: HEPARIN 5000 UNIT/ML 1 ML VIAL SQ SCH ×2 (01:48→09:45)
[2020-09-04 02:27] VITALS: O2SAT 99
[2020-09-04 06:24] LABS: Basophils % 0.6 % (0-1.3); Hematocrit 36.9 % (39.6-49.0); Lymphocytes % 52.7 % (15.3-44.8); MPV 7.9 fL (7.6-11.3); RBC Red Blood Cell Count 3.83 M/uL (4.33-5.43)
[2020-09-04 06:34] LABS: Potassium 3.7 mmol/L (3.5-5.1)
[2020-09-04] MEDS ORDERED: POTASSIUM 25 MEQ EFFERV TAB PO ONE (07:22)
[2020-09-04] MEDS: INSULIN -REGULAR HUMAN 50 UNIT/0.5 ML ML SQ SCH ×2 (07:30→11:30)
[2020-09-04] MEDS: SILVER SULFADIAZINE 1% 50 GM TOP SCH (09:00)
[2020-09-04] MEDS ORDERED: POTASSIUM CL SA 10 MEQ TAB PO ONE (09:00)
[2020-09-04] MEDS: NYSTATIN PWDR 100000 UNIT/GM TOP SCH (09:00)
--- NOTE | 2020-09-04 09:39 | P.DS ---
Discharge Date: 09/04/20 Primary Care Provider: Milena Disposition: ROUTINE DISCHARGE Discharge Condition: GOOD Reason for Admission: scrotal cellulitis - Problems (1) Tinea cruris Current Visit: Yes Status: Acute (2) Cellulitis of scrotum Current Visit: Yes Status: Acute (3) HTN (hypertension) Current Visit: Yes Status: Chronic Qualifiers: Hypertension type: essential hypertension Qualified Code(s): I10 - Essential (primary) hypertension (4) Type 2 diabetes mellitus Current Visit: Yes Status: Chronic Qualifiers: Diabetes mellitus usp insulin use: without terminal press operator use Diabetes mellitus complication status: with other specified complication Qualified Code(s): E11.69 - Type 2 diabetes mellitus with other specified complication Brief History of Present Illness: Mr. Kirk is an 89 year old male with DM and HTN here today with scrotal pain, swelling ,and erythema. He was started on oral antibiotics on 08/24, and returned to clinic yesterday. He was notified this morning that his WBC were elevated to 16.5 and to report to the Ed. He denies night sweats, chills, nausea, vomiting. Sandra says he has been complaining of weakness and he was initially hypotensive on arrival. Sandra reports patient lives with his ; he has only been showering once a week and has not been changing his adult diapers often enough. BUN 40, Cr 1.52, GFR 43. Glu 165. Hospital Course: Patient is clinically doing well with no new complaints. Patient's symptoms continued to improve. Patient's erythema of the scrotum has improved as well. Patient will continue with Diflucan at discharge. Continue with nystatin powder as well. Recommend antibiotics for another 7-10 days. At this time, patient is stable for discharge home with outpatient follow with Urology. Patient will finish doses today of antifungal medication and antibiotic therapy. Vital Signs/Physical Exam: Temp Pulse Resp BP Pulse Ox 97.3 F 69 16 133/72 98 09/04/20 04:00 09/04/20 04:00 09/04/20 04:00 09/04/20 04:00 09/04/20 04:00 General: Alert, In no apparent distress, Oriented x2 Laboratory Data at Discharge: WBC 11.40 K/uL (4.3-10.9) H 09/04/20 06:10 Hgb 12.2 g/dL (13.6-17.9) L 09/04/20 06:10 Hct 36.9 % (39.6-49.0) L 09/04/20 06:10 Plt Count 200 K/uL (152-406) 09/04/20 06:10 PT 12.4 SECONDS (9.5-12.5) 09/01/20 17:10 INR 1.08 09/01/20 17:10 Sodium 143 mmol/L (136-145) 09/04/20 06:10 Potassium 3.7 mmol/L (3.5-5.1) 09/04/20 06:10 BUN 47 mg/dL (7-18) H 09/04/20 06:10 Creatinine 2.50 mg/dL (0.55-1.3) H 09/04/20 06:10 Glucose 99 mg/dL (74-106) 09/04/20 06:10 Phosphorus 4.1 mg/dL (2.5-4.9) 09/02/20 05:20 Magnesium 2.2 mg/dL (1.8-2.4) 09/02/20 05:20 Total Bilirubin 0.5 mg/dL (0.2-1.0) 09/02/20 05:20 AST 18 U/L (15-37) 09/02/20 05:20 ALT 28 U/L (12-78) 09/02/20 05:20 Alkaline Phosphatase 75 U/L (45-117) 09/02/20 05:20 Home Medications: Albuterol Inhaler [Ventolin Inhaler*] 2 puff IH Q6H PRN 01/07/16 Donepezil [Aricept*] 5 mg PO BEDTIME 01/07/16 Losartan Potassium [Cozaar*] 50 mg PO BID 01/07/16 Metformin HCl [Glucophage*] 500 mg PO BIDWM 01/07/16 Atorvastatin Calcium 1 tab PO BEDTIME 09/02/20 Triamterene/Hydrochlorothiazid [Triamterene-Hctz 37.5-25 mg Cp] 1 tab PO DAILY 09/02/20 Acidophilus/Bulgaricus [Lactinex Tablet Chewable] 1 each PO BID #60 tab.chew 09/04/20 Calcitrol [Rocaltrol*] 0.5 mcg PO DAILY #30 cap 09/04/20 Cholecalciferol (Vitamin D3) [Vitamin D 5,000 IU Cap*] 5,000 unit PO DAILY #30 cap 09/04/20 Doxycycline Hyclate 100 mg PO BID #14 tablet 09/04/20 Fluconazole [Diflucan] 200 mg PO DAILY #7 tablet 09/04/20 Levofloxacin [Levaquin] 500 mg PO DAILY #7 tablet 09/04/20 Nystatin Powder [Mycostatin (Powder)*] 1 appl TOP BID #1 btl 09/04/20 Silver Sulfadiazine Crm [Silvadene*] 1 appl TOP BID #1 jar 09/04/20 New Medications: Fluconazole [Diflucan] 200 mg PO DAILY #7 tablet Doxycycline Hyclate 100 mg PO BID #14 tablet Acidophilus/Bulgaricus [Lactinex Tablet Chewable] 1 each PO BID #60 tab.chew Levofloxacin [Levaquin] 500 mg PO DAILY #7 tablet Nystatin Powder [Mycostatin (Powder)*] 1 appl TOP BID #1 btl Calcitrol [Rocaltrol*] 0.5 mcg PO DAILY #30 cap Silver Sulfadiazine Crm [Silvadene*] 1 appl TOP BID #1 jar Cholecalciferol (Vitamin D3) [Vitamin D 5,000 IU Cap*] 5,000 unit PO DAILY #30 cap Physician Discharge Instructions: OK TO DC IV AND DC HOME FOLLOW-UP WITH PRIMARY CARE PROVIDER IN 1-2 WEEKS FOLLOW-UP WITH UROLOGY. Dr. Anderson, IN 1-2 WEEKS RETURN TO THE ER IF symptoms worsen CALL or TEXT DR. FISCHER AT [phone] IF ANY QUESTIONS REGARDING HOSPITAL STAY. PLEASE CALL THE FLOOR AT [phone] IF ANY MEDICATION OR NURSING QUESTIONS. Diet: AHA Activity: Fall precautions Followup: Sage Armijo MD [Primary Care Provider] - (call to schedule appointment) Time spent managing pt's care (in minutes): 35
[2020-09-04] MEDS: CALCITROL 0.25 MCG CAP PO SCH (09:43)
[2020-09-04] MEDS: VITAMIN D 5,000 UNIT CAP PO SCH (09:43)
--- NOTE | 2020-09-04 09:46 | P.PN ---
Subjective Date of Service: 09/04/20 Primary Care Provider: Milena Chief Complaint: scrotal cellulitis Patient seen examined at bedside, doing better today. Plan for Dc. Patient will receive 1 more dose of vancomycin and Diflucan prior to discharge. Dc home on oral doxycycline and Levaquin. Patient will complete antibiotic course on 09/09. Review of Systems 10-point ROS is otherwise unremarkable Physical Examination - Vital Signs Temperature: 97.3 F Blood Pressure: 133/72 Pulse: 69 Respirations: 16 Pulse Ox (%): 98 - Studies Temp Pulse Resp BP Pulse Ox 97.3 F 69 16 133/72 98 09/04/20 04:00 09/04/20 04:00 09/04/20 04:00 09/04/20 04:00 09/04/20 04:00 Laboratory Last Values WBC 16.50 K/uL (4.3-10.9) H 09/01/20 17:10 RBC 3.91 M/uL (4.33-5.43) L 09/01/20 17:10 Hgb 12.4 g/dL (13.6-17.9) L 09/01/20 17:10 Hct 37.7 % (39.6-49.0) L 09/01/20 17:10 MCV 96.4 fL (80-100) 09/01/20 17:10 MCH 31.7 pg (27.0-35.0) 09/01/20 17:10 MCHC 32.9 g/dL (32.0-36.0) 09/01/20 17:10 RDW 14.0 % (12.1-15.2) 09/01/20 17:10 Plt Count 226 K/uL (152-406) 09/01/20 17:10 MPV 8.6 fL (7.6-11.3) 09/01/20 17:10 Neutrophils % 53.1 % (41.7-73.7) 09/01/20 17:10 Lymphocytes % 41.0 % (15.3-44.8) 09/01/20 17:10 Monocytes % 4.9 % (3.3-12.3) 09/01/20 17:10 Eosinophils % 0.5 % (0-4.4) 09/01/20 17:10 Basophils % 0.5 % (0-1.3) 09/01/20 17:10 Absolute Neutrophils 8.8 K/uL (1.8-8.0) H 09/01/20 17:10 Absolute Lymphocytes 6.8 K/uL (0.7-4.9) H 09/01/20 17:10 Absolute Monocytes 0.8 K/uL (0.1-1.3) 09/01/20 17:10 Absolute Eosinophils 0.1 K/uL (0-0.5) 09/01/20 17:10 Absolute Basophils 0.1 K/uL (0-0.5) 09/01/20 17:10 PT 12.4 SECONDS (9.5-12.5) 09/01/20 17:10 INR 1.08 09/01/20 17:10 Sodium 136 mmol/L (136-145) 09/01/20 17:10 Potassium 4.3 mmol/L (3.5-5.1) 09/01/20 17:10 Chloride 102 mmol/L (98-107) 09/01/20 17:10 Carbon Dioxide 26 mmol/L (21-32) 09/01/20 17:10 BUN 40 mg/dL (7-18) H 09/01/20 17:10 Creatinine 1.52 mg/dL (0.55-1.3) H 09/01/20 17:10 Estimated GFR 43 mL/min (=/>90) L 09/01/20 17:10 Glucose 165 mg/dL (74-106) H 09/01/20 17:10 Lactic Acid 2.3 mmol/L (0.4-2.0) H 09/01/20 17:29 Calcium 8.6 mg/dL (8.5-10.1) 09/01/20 17:10 Magnesium 2.2 mg/dL (1.8-2.4) 09/01/20 17:10 Total Bilirubin 0.4 mg/dL (0.2-1.0) 09/01/20 17:10 Direct Bilirubin 0.1 mg/dL (0-0.2) 09/01/20 17:10 AST 19 U/L (15-37) 09/01/20 17:10 ALT 32 U/L (12-78) 09/01/20 17:10 Alkaline Phosphatase 81 U/L (45-117) 09/01/20 17:10 Rapid Troponin I < 0.02 ng/mL (0.0-0.045) 09/01/20 17:10 NT-Pro-B Natriuret Pep 227 pg/mL (<450) 09/01/20 17:10 Serum Total Protein 6.5 g/dL (6.4-8.2) 09/01/20 17:10 Albumin 3.5 g/dL (3.4-5.0) 09/01/20 17:10 Globulin 3.0 g/dL (2.3-3.5) 09/01/20 17:10 Albumin/Globulin Ratio 1.2 (1.1-1.8) 09/01/20 17:10 SARS-CoV-2 RNA (RT-PCR) Negative (NEGATIVE) 09/01/20 17:21 Medications List Reviewed: Yes Assessment And Plan - Plan Antibiotics: Levaquin start: 09/02 stop: 09/09 DC: vancomycin start: 09/02 stop:09/04 Assessment: -cellulitis of scrotal area -diabetes mellitus - hypertension -chest x-ray showing bibasilar opacities with left-sided atelectasis -renal faliure -protein-calorie malnourishment with albumin of 3 Plan: -continue current antibiotic therapy. Total antibiotic course should be 2 weeks. Patient can be discharged home on oral doxycycline and Levaquin. Adjust antibiotic as the patient has renal insufficiency. Keep the scrotal area elevated and apply Silvadene to the scrotal area daily and whenever soiled, monitor for signs of infection. -blood cultures negative, UA culture pending. -Nutritional support for protein-calorie malnourishment. -medical management per primary team -continue to monitor CBC and BMP-leukocytosis present however is down trending. -continue to monitor for signs of infection Plan of care discussed with Dr. Agee. Thank you Dr. Ramsey for consult.
[2020-09-04 09:58] LABS: Blood Morphology Comment NOT SEEN (NOT SEEN); Platelet Estimate ADEQ
[2020-09-04] MEDS ORDERED: VANCOMYCIN 1.25 GM in NA CHLORIDE 0.9% 250 ML IVPB SCH (12:00)
[2020-09-04 12:47] VITALS: BP 142/60; TEMP 97.6
[2020-09-04] MEDS ORDERED: FLUCONAZOLE 200mg IVPB 200 MG/100 ML BAG IV SCH (15:00)
== END 2020-09-04 14:45 | disposition home health service (06) | DRG 872 ==
LOC: ER 15:32 → ERHOLD 20:23 → 4TH 09-02 19:57
PROVIDERS: ADMIT Hospitalist; ATTEND Hospitalist
DX: A41.9 Sepsis, unspecified organism (principal); N17.9 Acute kidney failure, unspecified; E87.2 Acidosis; E46 Unspecified protein-calorie malnutrition; N49.2 Inflammatory disorders of scrotum; I12.9 Hypertensive chronic kidney disease with stage 1 through stage 4 chronic kidney disease, or unspecified chronic kidney disease; N18.30 Chronic kidney disease, stage 3 unspecified; E11.22 Type 2 diabetes mellitus with diabetic chronic kidney disease; E11.69 Type 2 diabetes mellitus with other specified complication; D63.8 Anemia in other chronic diseases classified elsewhere; E83.51 Hypocalcemia; B35.6 Tinea cruris; Z68.21 Body mass index [BMI] 21.0-21.9, adult; Z88.8 Allergy status to other drugs, medicaments and biological substances; Z79.84 Long term (current) use of oral hypoglycemic drugs; Z91.011 Allergy to milk products; Z79.899 Other long term (current) drug therapy; Z20.822 Contact with and (suspected) exposure to COVID-19
CPT/HCPCS: 36415; 71045; 76770; 80048; 80053; 80076; 80202; 82947; 83605; 83735; 83880; 84100; 84484; 85025; 85610; 87040; 87086; 87088; 93005; 94760; 99285; J1450; J1644; J3370; J7030; J7040; J7050; J7120; U0003

== ENCOUNTER 2021-07-18 07:49 | Emergency (ER) | payer OTHER ==
--- OUTSIDE RECORDS SUMMARY | 2021-07-18 07:52 | XMS REPORT | Continuity of Care Document ---
:1930 Author Organization [facility] t Address [address] [place] [address] Dr. [address]. [address] [place] [address] Care Team Providers Name Role Phone Aleksander ARAGON Primary Care Physician Thiago RN, T Attending Clinician Unavailable Only, Db Test Attending Clinician Unavailable Uriel ARAGON Attending Clinician URIEL Attending Clinician Unavailable Doctor Unassigned, Name Attending Clinician Unavailable KALANI Attending Clinician Unavailable Maximiliano Dunn MD Attending Clinician MAXIMILIANO DUNN Attending Clinician Unavailable Miller_S_AH Attending Clinician Unavailable BREANN Attending Clinician Unavailable Pob, Lab Main Attending Clinician Unavailable Ajibade_O_AH Attending Clinician Unavailable Danilo ROSARIO Attending Clinician Unavailable Ige-Odunuga_J_AH Attending Clinician Unavailable MARKUS PEMBERTON Attending Clinician Unavailable BONIFACIO RODRIGUEZ Attending Clinician Unavailable HARRY Attending Clinician Unavailable Miller_S_AH Admitting Clinician Unavailable Ajibade_O_AH Admitting Clinician Unavailable Ige-Odun[place]_J_AH Admitting Clinician Unavailable Payers Payer Name Policy Type Policy Number Effective Date Expiration Date Colt samuels [employer] [place] [id number] 2019 PLUS CLASSIC/VALUE 00:00:00 [place] - [id number] 2019 [place] 00:00:00 (MEDICARE REPLACEMENT/ADVANT AGE - HMO) Problems Condition Condition Condition Status Onset Resolution Last Treating Co mments Source Name Details Category Date Date Treatment Clinician Date Blood Blood Problem Active [facility] coagulatio Coagulatio 2-10 Fa matthew n disorder n Disorder 00:00: Pr actic 00 e Peripheral Peripheral Problem Active [facility] vascular Vascular 2-10 Family disease Disease 00:00: Practic 00 e 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 00:00: Practi c with with 00 e peripheral Peripheral angiopathy 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 7-20 [place] to [place] due to 00 Medica l adhesions adhesions Bran ch Postoperat Postoperat Problem Active [facility] bianca bianca 7-14 Family intestinal Intestinal 00:00: Pr actic obstructio Obstructio 00 e n n E44.0 E44.0 Disease Active Univers Moderate Moderate 6-18 ity of protein protein 00:00: [place] calorie calorie 00 Medical malnutriti malnutriti Br anch on on Elevated Elevated Disease Active Unive rs brain brain 6-17 ity of natriureti natriureti [place] c peptide c peptide 00 Medi deisy (BNP) (BNP) Branch level level Sinus Sinus Disease Active Univers tachycardi tachycardi 6-17 it y of a a 00:00: [place] 00 Medical Branch Pericardia Pericardia Disease Active 2019- U nivers l effusion l effusion 6-17 it y of 00:00: [place] 00 Medical Branch Diverticul Diverticul Disease Active 2020-0 U nivers itis large itis large 6-16 it y of intestine intestine [place] w/[place] w/o 00 Medical perforatio perforatio Br anch n or n or abscess abscess w/o w/o bleeding bleeding Leg edema Leg edema Disease Active 2019- Uni vers 6-16 ity of 00:00: [place] 00 Medical Branch 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 6-16 ity of 00:00: [place] 00 Medical Branch Hyperlipid Hyperlipid Problem Active [facility] emia emia 4-21 Family 00:00: Practic 00 e Multiple Multiple Problem Active 2018-05 Perez ge complicati Complicati 1-18 Fa matthew ons due to ons Due to 00:00: Pr actic type 2 Type 2 00 e diabetes Diabetes mellitus Mellitus Dementia Dementia Problem Active Chris ge 7- Family 00:00: Practic 00 e Essential Essential Problem Active Owen michael hypertensi Hypertensi 7 Fa matthew on on 00:00: Practic 00 e 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 10-29 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 Failure 00:00: Practic 00 e Gastroesop Gastroesop Problem Active [facility] hageal hageal 10-29 Family reflux Reflux 00:00: Practic disease Disease 00 e 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 10-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 ly hyperplasi Hyperplasi 00:00: Pr actic a a 00 e Type 2 Type 2 Disease Active Univers diabetes diabetes 2-13 ity of mellitus mellitus 00:00: [place] [address] Medical Branch Essential Essential Disease Active Uni vers hypertensi hypertensi 2-13 it y of on on 00:00: [place] [address] Medical Branch Allergies, Adverse Reactions, Alerts Allergy Allergy Status Severity Reaction(s) Onset Inactive Treating Comm ents Source Name Type Date Date Clinician ASPIRIN DRUG Active Low Unknown-Cmnt Uni vers INGREDI 2-13 ity of 00:00: [place] [address] Medical Branch MILK DRUG Active Low Unknown-Cmnt Univ ers INGREDI 2-13 ity of 00:00: [place] [address] Medical Branch NO KNOWN Drug Active Univers ALLERGIE Class ity of S [facility] Social History Social Habit Start Date Stop Date Quantity Comments Source Exposure to Not sure [facility] SARS-CoV-2 [facility] (event) Branch Alcohol intake 2021-02-19 2021-02-19 Ex-drinker [facility] 00:00:00 00:00:00 (finding) [facility] Tobacco use and 2015-06-13 2015-06-13 Never used Universit y of exposure 00:00:00 00:00:00 [facility] Sex Assigned At [birth year] Universit y of 00:00:00 00:00:00 [facility] Smoking Status Start Date Stop Date Source Former Smoker [place] Family P bradley Never smoker [facility] Medications Ordered Filled Start Stop Current Ordering Indication Dosage Frequency Signature Comments Components Source Medication Medication Date Date Medication? Clinician (SIG) Name Name lactulose 0 Yes [id number] 30mL Take 30 mL Univers 10 gram/15 8-13 by mouth 3 ity of mL oral 00:00: (three) [place] solution 00 times Medical daily as Branch needed for Constipati on or For bowel movement. polyethylen 2020-0 Yes [id number] 1{packe Take 1 Univers e glycol 8-13 t} Packet by ity of 3350 00:00: mouth 2 [place] (MIRALAX) 00 (two) Medical 17 gram times Branch powder daily. lactulose 2020-0 Yes [id number] 30mL Take 30 mL Univers 10 gram/15 8-13 by mouth 3 ity of mL oral 00:00: (three) [place] solution 00 times Medical daily as Branch needed for Constipati on or For bowel movement. polyethylen 2020-0 Yes [id number] 1{packe Take 1 Univers e glycol 8-13 t} Packet by ity of 3350 00:00: mouth 2 [place] (MIRALAX) 00 (two) Medical 17 gram times Branch powder daily. lactulose 2020-0 Yes [id number] 30mL Take 30 mL Univers 10 gram/15 8-13 by mouth 3 ity of mL oral 00:00: (three) [place] solution 00 times Medical daily as Branch needed for Constipati on or For bowel movement. polyethylen 2020-0 Yes [id number] 1{packe Take 1 Univers e glycol 8-13 t} Packet by ity of 3350 00:00: mouth 2 [place] (MIRALAX) 00 (two) Medical 17 gram times Branch powder daily. lactulose 2020-0 Yes [id number] 30mL Take 30 mL Univers 10 gram/15 8-13 by mouth 3 ity of mL oral 00:00: (three) [place] solution 00 times Medical daily as Branch needed for Constipati on or For bowel movement. polyethylen 2020-0 Yes [id number] 1{packe Take 1 Univers e glycol 8-13 t} Packet by ity of 3350 00:00: mouth 2 [place] (MIRALAX) 00 (two) Medical 17 gram times Branch powder daily. lactulose 2020-0 Yes [id number] 30mL Take 30 mL Univers 10 gram/15 8-13 by mouth 3 ity of mL oral 00:00: (three) [place] solution 00 times Medical daily as Branch needed for Constipati on or For bowel movement. polyethylen Yes [id number] 1{packe Take 1 Univers e glycol 8-13 t} Packet by ity of 3350 00:00: mouth 2 [place] (MIRALAX) 00 (two) Medical 17 gram times Branch powder daily. docusate Yes [id number] 250mg Take 1 Univers sodium 250 8-01 08 capsule by ity of mg capsule 00:00: mouth once [place] 00 daily as Medical needed for Branch Constipati on. polyethylen Yes [id number] 1{packe Take 1 Univers e glycol 8-01 08 t} Packet by ity of 3350 00:00: mouth once [place] (MIRALAX) 00 daily as Medica l 17 gram needed for Branch powder Constipati on. ondansetron Yes [id number] 4mg Take 1 Univers 4 mg 8-01 08 tablet by ity of disintegrat 00:00: mouth [place] ing tablet 00 every 4 Medica l (four) Branch hours as needed for Nausea and Vomiting (N/V). docusate Yes [id number] 250mg Take 1 Univers sodium 250 8-01 08 capsule by ity of mg capsule 00:00: mouth once [place] 00 daily as Medical needed for Branch Constipati on. polyethylen Yes [id number] 1{packe Take 1 Univers e glycol 8-01 08 t} Packet by ity of 3350 00:00: mouth once [place] (MIRALAX) 00 daily as Medica l 17 gram needed for Branch powder Constipati on. ondansetron Yes [id number] 4mg Take 1 Univers 4 mg 8-01 08 tablet by ity of disintegrat 00:00: mouth [place] ing tablet 00 every 4 Medica l (four) Branch hours as needed for Nausea and Vomiting (N/V). docusate Yes [id number] 250mg Take 1 Univers sodium 250 8-01 08 capsule by ity of mg capsule 00:00: mouth once [place] 00 daily as Medical needed for Branch Constipati on. polyethylen Yes [id number] 1{packe Take 1 Univers e glycol 8-01 08 t} Packet by ity of 3350 00:00: mouth once [place] (MIRALAX) 00 daily as Medica l 17 gram needed for Branch powder Constipati on. ondansetron Yes [id number] 4mg Take 1 Univers 4 mg 8-01 08 tablet by ity of disintegrat 00:00: mouth [place] ing tablet 00 every 4 Medica l (four) Branch hours as needed for Nausea and Vomiting (N/V). docusate Yes [id number] 250mg Take 1 Univers sodium 250 8-01 08 capsule by ity of mg capsule 00:00: mouth once [place] 00 daily as Medical needed for Branch Constipati on. polyethylen Yes [id number] 1{packe Take 1 Univers e glycol 8-01 08 t} Packet by ity of 3350 00:00: mouth once [place] (MIRALAX) 00 daily as Medica l 17 gram needed for Branch powder Constipati on. ondansetron Yes [id number] 4mg Take 1 Univers 4 mg 8-01 08 tablet by ity of disintegrat 00:00: mouth [place] ing tablet 00 every 4 Medica l (four) Branch hours as needed for Nausea and Vomiting (N/V). docusate Yes [id number] 250mg Take 1 Univers sodium 250 8-01 08 capsule by ity of mg capsule 00:00: mouth once [place] 00 daily as Medical needed for Branch Constipati on. polyethylen Yes [id number] 1{packe Take 1 Univers e glycol 8-01 08 t} Packet by ity of 3350 00:00: mouth once [place] (MIRALAX) 00 daily as Medica l 17 gram needed for Branch powder Constipati on. ondansetron Yes [id number] 4mg Take 1 Univers 4 mg 8-01 08 tablet by ity of disintegrat 00:00: mouth [place] ing tablet 00 every 4 Medica l (four) Branch hours as needed for Nausea and Vomiting (N/V). docusate Yes [id number] 100mg Take 1 Univers 100 mg 7-03 [id number] capsule by ity o f capsule 00:00: mouth [place] 00 daily. Medical Branch docusate 2020-0 Yes [id number] 100mg Take 1 Univers 100 mg 7- [id number] capsule by ity o f capsule 00:00: mouth [place] 00 daily. Medical Branch docusate 2020-0 Yes [id number] 100mg Take 1 Univers 100 mg 7- [id number] capsule by ity o f capsule 00:00: mouth [place] 00 daily. Medical Branch docusate 2020-0 Yes [id number] 100mg Take 1 Univers 100 mg 7- [id number] capsule by ity o f capsule 00:00: mouth [place] 00 daily. Medical Branch docusate 2020-0 Yes [id number] 100mg Take 1 Univers 100 mg 7- [id number] capsule by ity o f capsule 00:00: mouth [place] 00 daily. Medical Branch METFORMIN 2020-0 Yes 500mg Take 500 Uni vers HCL 7-02 mg by ity of (METFORMIN 18:27: [place] 2 [place] ORAL[place] 12 (two) Medical times [place] daily. losartan 50 2020-0 Yes 50mg Take 50 mg Univers mg tablet 7-02 by mouth ity of 18:27: daily. [place] [address] Medical Branch atorvastati 2020-0 Yes 40mg Take 40 mg Univers n 40 mg 7-02 by mouth ity of tablet 18:27: at [place] [address] bedtime. Medical Branch omeprazole 2020-0 Yes 40mg Take 40 mg U nivers 40 mg 7-02 by mouth ity of capsule 18:27: daily. [address] tamsulosin 2020-0 Yes Take by Uni vers 0.4 mg 24 7-02 mouth ity of hr capsule 18:27: daily. [address] sucralfate 2020-0 Yes 1g Take 1 g Uni vers 1 gram 7-02 by mouth ity of tablet 18:27: before [place] [address] meals and Medical at [place] bedtime. FENUGREEK 2020-0 Yes 610mg Take 610 Uni vers SEED 7-02 mg by ity of EXTRACT 18:27: mouth. [place] [address] Medical Branch Mercy 2020-0 Yes Take by Univers Prim-Linole 7-02 mouth. ity of ic-Gamoleni 18:27: [place] [facility] 12 Medical (PRIMROSE Branch OIL) 1,000 mg Cap METFORMIN 2020-0 Yes 500mg Take 500 Uni vers HCL 7-02 mg by ity of (METFORMIN 18:27: [place] 2 [place] ORAL[place] 12 (two) Medical times Branch daily. losartan 50 2020-0 Yes 50mg Take 50 mg Univers mg tablet 7-02 by mouth ity of 18:27: daily. [address] Branch atorvastati 2020-0 Yes 40mg Take 40 mg Univers n 40 mg 7-02 by mouth ity of tablet 18:27: at [place] [address] bedtime. Medical Branch omeprazole 2020-0 Yes 40mg Take 40 mg U nivers 40 mg 7-02 by mouth ity of capsule 18:27: daily. [address] Branch tamsulosin 2020-0 Yes Take by Uni vers 0.4 mg 24 7-02 mouth ity of hr capsule 18:27: daily. [address] sucralfate 2020-0 Yes 1g Take 1 g Uni vers 1 gram 7-02 by mouth ity of tablet 18:27: before [place] [address] meals and Medical at [place] bedtime. FENUGREEK 2020-0 Yes 610mg Take 610 Uni vers SEED 7-02 mg by ity of EXTRACT 18:27: mouth. [address] Mercy 2020-0 Yes Take by Univers Prim-Linole 7-02 mouth. ity of ic-Gamoleni 18:27: [place] [address] Medical (PRIMROSE Branch OIL) 1,000 mg Cap METFORMIN 2020-0 Yes 500mg Take 500 Uni vers HCL 7-02 mg by ity of (METFORMIN 18:27: [place] 2 [place] ORAL[place] 12 (two) Medical times [place] daily. losartan 50 2020-0 Yes 50mg Take 50 mg Univers mg tablet 7-02 by mouth ity of 18:27: daily. [address] atorvastati 2020-0 Yes 40mg Take 40 mg Univers n 40 mg 7-02 by mouth ity of tablet 18:27: at [place] [address] bedtime. Medical Branch omeprazole 2020-0 Yes 40mg Take 40 mg U nivers 40 mg 7-02 by mouth ity of capsule 18:27: daily. [address] tamsulosin 2020-0 Yes Take by Uni vers 0.4 mg 24 7-02 mouth ity of hr capsule 18:27: daily. [address] sucralfate 2020-0 Yes 1g Take 1 g Uni vers 1 gram 7-02 by mouth ity of tablet 18:27: before [place] [address] meals and Medical at [place] bedtime. FENUGREEK 2020-0 Yes 610mg Take 610 Uni vers SEED 7-02 mg by ity of EXTRACT 18:27: mouth. [address] Branch [facility] 2020-0 Yes Take by Univers Prim-Linole 7-02 mouth. ity of ic-Gamoleni 18:27: [place] [address] Medical (PRIMROSE Branch OIL) 1,000 mg Cap METFORMIN 2020-0 Yes 500mg Take 500 Uni vers HCL 7-02 mg by ity of (METFORMIN 18:27: [place] 2 [place] OR[place] 12 (two) Medical times [place] daily. losartan 50 2020-0 Yes 50mg Take 50 mg Univers mg tablet 7-02 by mouth ity of 18:27: daily. [address] atorvastati 2020-0 Yes 40mg Take 40 mg Univers n 40 mg 7-02 by mouth ity of tablet 18:27: at [place] [address] bedtime. Medical Branch omeprazole 2020-0 Yes 40mg Take 40 mg U nivers 40 mg 7-02 by mouth ity of capsule 18:27: daily. [address] tamsulosin 2020-0 Yes Take by Uni vers 0.4 mg 24 7-02 mouth ity of hr capsule 18:27: daily. [address] sucralfate 2020-0 Yes 1g Take 1 g Uni vers 1 gram 7-02 by mouth ity of tablet 18:27: before [place] [address] meals and Medical at [place] bedtime. FENUGREEK 2020-0 Yes 610mg Take 610 Uni vers SEED 7-02 mg by ity of EXTRACT 18:27: mouth. [address] [facility] 2020-0 Yes Take by Univers Prim-Linole 7-02 mouth. ity of ic-Gamoleni 18:27: [place] [address] Medical (PRIMROSE Branch OIL) 1,000 mg Cap METFORMIN 2020-0 Yes 500mg Take 500 Uni vers HCL 7-02 mg by ity of (METFORMIN 18:27: [place] 2 [place] ORAL[place] 12 (two) Medical times [place] daily. losartan 50 2020-0 Yes 50mg Take 50 mg Univers mg tablet 7-02 by mouth ity of 18:27: daily. [address] atorvastati 2020-0 Yes 40mg Take 40 mg Univers n 40 mg 7-02 by mouth ity of tablet 18:27: at [place] [address] bedtime. Medical Branch omeprazole 2020-0 Yes 40mg Take 40 mg U nivers 40 mg 7-02 by mouth ity of capsule 18:27: daily. [address] tamsulosin Yes Take by Uni vers 0.4 mg 24 10-30 mouth ity of hr capsule 18:27: daily. [address] sucralfate 2019- Yes 1g Take 1 g Uni vers 1 gram 10-30 by mouth ity of tablet 18:27: before [place] [address] meals and Medical at Branch bedtime. FENUGREEK Yes 610mg Take 610 Uni vers SEED 10-30 mg by ity of EXTRACT 18:27: mouth. [address] [facility] Yes Take by Univers Prim-Linole 10-30 mouth. ity of ic-Gamoleni 18:27: [place] [address] Medical (PRIMROSE Branch OIL) 1,000 mg Cap atorvastati atorvastati No 1 Q1D atorvastat [place] n 40 mg n 40 mg in [...] bedtime. famotidine famotidine No 1 BID famotidine [place] 20 mg 20 mg 20 mg Family [...] route. metformin metformin No 1 BID metformin [place] 500 mg 500 mg 500 mg Family tablet Take tablet Take tablet Practic 1 tablet 1 tablet Take 1 e twice a day twice a day tablet by oral by oral twice a route. route. day by oral route. omeprazole omeprazole No 1capsul Q1D omeprazole [facility] 40 mg 40 mg e(s) 40 mg Family capsule,del capsule,del capsule,de Practic ayed ayed layed e release release release Take 1 Take 1 Take 1 capsule capsule capsule every day every day every day by oral by oral by oral route. route. route. tamsulosin tamsulosin No 1capsul Q1D tamsulosin [place] 0.4 mg 0.4 mg e(s) 0.4 mg Family capsule capsule capsule Practi c Take 1 Take 1 Take 1 e capsule capsule capsule every day every day every day by oral by oral by oral route in route in route in the the the evening. evening. evening. Immunizations Ordered Filled Immunization Date Status Comments [facility] e Immunization Name Name SARS-COV-2 COVID-19 2020-08-11 Completed Unive rsity of PFIZER VACCINE 00:00:00 [facility] SARS-COV-2 COVID-19 2020-08-11 Completed Unive rsity of PFIZER VACCINE 00:00:00 [facility] SARS-COV-2 COVID-19 2020-08-11 Completed Unive rsity of PFIZER VACCINE 00:00:00 [facility] SARS-COV-2 COVID-19 2020-08-11 Completed Unive rsity of PFIZER VACCINE 00:00:00 [facility] SARS-COV-2 COVID-19 2020-08-11 Completed Unive rsity of PFIZER VACCINE 00:00:00 [facility] SARS-COV-2 COVID-19 2020-07-21 Completed Unive rsity of PFIZER VACCINE 00:00:00 [facility] SARS-COV-2 COVID-19 2020-07-21 Completed Unive rsity of PFIZER VACCINE 00:00:00 [facility] SARS-COV-2 COVID-19 2020-07-21 Completed Unive rsity of PFIZER VACCINE 00:00:00 [facility] SARS-COV-2 COVID-19 2020-07-21 Completed Unive rsity of PFIZER VACCINE 00:00:00 [facility] SARS-COV-2 COVID-19 2020-07-21 Completed Unive rsity of PFIZER VACCINE 00:00:00 [facility] influenza, influenza, 2018-01-29 Completed [facility] injectable, injectable, 00:00:00 Practice quadrivalent quadrivalent Td 2015-06-12 Completed University 00:00:00 [facility] Td 2015-06-12 Completed University 00:00:00 [facility] Td 2015-06-12 Completed University of 00:00:00 [facility] Td 2015-06-12 Completed University of 00:00:00 [facility] Td 2015-06-12 Completed University of 00:00:00 [facility] Vital Signs Vital Name Observation Time Observation Value Comments Source Systolic blood 2021-02-19 14:09:00 97 mm[Hg] Univer sity of pressure [facility] Diastolic blood 2021-02-19 14:09:00 56 mm[Hg] Unive rsity of [facility] Heart rate 2021-02-19 14:09:00 83 /min Universi ty [facility] Body temperature 2021-02-19 14:09:00 35.83 Aruna [facility] Respiratory rate 2021-02-19 14:09:00 14 /min [facility] Body height 2021-02-19 14:09:00 170.2 cm [facility] Body weight 2021-02-19 14:09:00 66.225 kg [facility] BMI 2021-02-19 14:09:00 22.87 kg/m2 [facility] Oxygen saturation in 2021-02-19 14:09:00 100 /min [facility] Arterial blood by [facility] Pulse oximetry Branch Height 2020-08-11 00:00:00 66 [in_i] [facility] BMI (Body Mass 2020-08-11 00:00:00 24.2 kg/m2 [facility] Family Index) Practice Body Weight 2020-08-11 00:00:00 150 [lb_av] [facility] Height 2020-05-12 00:00:00 66 [in_i] [facility] Procedures Procedure Date / Time Performed Performing Clinician [facility] e REFERRAL- 2021-05-10 06:01:00 Doctor Unassigned, No Univer [facility] [place] REQUEST/RESPONSE Name Medical Branch Encounters Start End Encounter Admission Attending Care Care Encounter Source Date/Time Date/Time Type Type Clinicians Facility Department ID 2021-03-02 Emergency [facility] [id number] Univers 03:10:00 ity of [facility] 2021-03-01 Emergency [facility] [id number] Univers 15:13:46 ity of [facility] 2021-03-01 Emergency [facility] [id number] Univers 12:15:36 ity of [facility] 2021-06-20 2021-06-20 Letter KYLEIGH Das [id number] Univers 00:00:00 00:00:00 (Out) Jania Smith HINA [id number] it y of HOSPITAL [id number] [place] as [phone] [address] 2021-06-18 2021-06-18 Laboratory Only, Ang Db Test [facility] 1.2.8 [id number] Univers 15:00:00 15:15:00 Only Uriel Cindy [facility] [id number] ity of [place] [id number] William as TRISHA?BLEA [phone] Ri mattie [address] MEDICAL OFFICE BUILDING 2021-06-18 2021-06-18 Outpatient R [facility] [id number] Univers 15:00:00 15:00:00 [id number] ity of [facility] 2021-06-18 2021-06-18 Outpatient R URIEL [facility] [id number] Univers 15:00:00 15:00:00 CINDY ity [facility] 2021-05-10 2021-05-10 Orders Doctor KYLEIGH [id number] Univers 00:00:00 00:00:00 Only Unassigned, HINA [id number] ity of [place] [facility] [id number] William as [phone] [address] 2021-03-08 2021-03-08 Outpatient R KALANI [facility] [id number] Univers 09:30:00 09:30:00 TRISTA [id number] ity [facility] 2021-02-19 2021-02-19 [facility] [id number] Univers 08:56:46 10:03:35 Visit Kyleigh Lerma [id number] i ty of Maximiliano Chaudhry [id number] [place] Profess[place] [phone] Ri mattie [facility] [address] Building 2021-02-19 2021-02-19 Outpatient R SHAUN, [facility] [id number] Univers 09:30:00 09:30:00 KYLEIGH [id number] [facility] 2021-02-19 2021-02-19 Outpatient Isela DUNN [facility] [id number] Univers 09:30:00 09:30:00 KYLEIGH [facility] 2020-10-19 2020-10-19 Outpatient Miller_S_AH VFP VFP [id number] [facility] 05:49:00 05:49:00 [id number] Family Practic e 2020-08-31 2020-08-31 Outpatient Isela BARTHodan, [facility] [id number] Univers 15:30:00 15:30:00 [facility] [id number] [facility] 2020-08-31 2020-08-31 [facility] [id number] Univers 15:30:00 15:30:00 [facility] 2020-08-31 2020-08-31 [employer] Worker Gage, Milli [facility] [id number] [id number] 14:59:24 15:14:24 Visit Lab Main [place] [id number] [place] [id number] Professio [phone] [place] [address] Building 2020-08-13 2020-08-13 Outpatient Ajibade_O_A VFP VFP [phone] [facility] 08:04:00 08:04:00 H [id number] Family Practic e 2020-08-11 2020-08-11 Outpatient Isela ROSARIO, [facility] [id number] [facility] 10:20:00 10:20:00 ISABEL [facility] 2020-08-11 2020-08-11 Outpatient Ajibade_O_A VFP VFP [phone] [facility] 05:20:00 05:20:00 H [id number] Family Practic e 2020-08-11 2020-08-11 iana [facility] [place] - [id number] V illage 00:00:00 00:00:00 Moises Burch Famil y OCEAN IMPORT REPRESENTATIVE: 9235 Medical - Pract fortunato Snelly, [email or web address] [address] [place] [address] , Ph. 2020-07-21 2020-07-21 Outpatient Isela ROSARIO, [facility] [id number] [facility] 10:20:00 10:20:00 ISABEL [facility] 2020-07-21 2020-07-21 Outpatient Isela ROSARIO [facility] [id number] Univers 10:10:00 10:10:00 ISABEL [facility] 2020-05-21 2020-05-21 Outpatient Ajibade_O_A VFP VFP [phone] [facility] 04:42:00 04:42:00 H [id number] Family Practic e 2020-05-21 2020-05-21 Outpatient VFP VFP [id number] [place] 04:42:00 04:42:00 [id number] Family Practic e 2020-05-12 2020-05-12 Outpatient Ajibade_O_A VFP VFP [phone] [place] 01:50:00 01:50:00 H 15007 Family Practic e 2020-05-12 2020-05-12 iana VFP [place] - [id number] V illage 00:00:00 00:00:00 RadhafarhanMoises Famil y OCEAN IMPORT REPRESENTATIVE: 9235 Medical - Pract ic Brianne Young, [email or web address]_ e [address] [address] , Ph. 2020-01-09 2020-01-09 Outpatient Ige-Odunuga VFP VFP [phone] [place] 01:30:00 01:30:00 _MIL [id number] Family Practic e 2020-01-09 2020-01-09 Outpatient Ige-Odunuga VFP VFP [phone] [place] 01:30:00 01:30:00 _NikitaAH 25857 Family Practic e 2020-01-07 2020-01-07 Outpatient Ige-Odunuga VFP VFP [phone] [place] 06:23:00 06:23:00 _NikitaAH 11646 Family Practic e 2019-12-20 2019-12-20 Outpatient Ige-Odunuga VFP VFP [phone] [place] 12:11:00 12:11:00 _MIL [id number] Family Practic e 2019-12-17 2019-12-17 Selina VFP [place] - [id number] V illage 00:00:00 00:00:00 Gunner [facility] Demarco bolton OCEAN IMPORT REPRESENTATIVE: Medical - Practi c 9235 Brianne [email or web address] [email or web address], [place] [address], [place] [address] , Ph. 2019-11-18 2019-11-18 [facility] [id number] [facility] 10:00:00 10:00:00 MICHAEL [facility] 2019-11-18 2019-11-18 Outpatient Ige-Odunuga VFP VFP [id number] [facility] 03:51:00 03:51:00 _J_AH [id number] Family Practic e 2019-11-12 2019-11-12 Selina VFP [place] - [id number] V illage 00:00:00 00:00:00 [facility] beryl bolton OCEAN IMPORT REPRESENTATIVE: Medical - Practi c 9235 Brianne [email or web address] [email or web address], [address] [address], [place] [address] , Ph. 2019-11-05 2019-11-05 Outpatient Ige-Odunuga VFP VFP [address] [place] [address] 11:42:00 11:42:00 _J_AH 11404 Family Practic e 2019-10-15 2019-10-15 Emergency [facility] [id number] Univers 04:05:03 04:05:03 DAREN [facility] 2019-10-02 2019-10-02 Emergency X [facility] [id number] Univers 09:31:52 09:31:52 KEYANA [facility] 2019-08-28 2019-08-28 Outpatient Ige-Odunuga VFP VFP [id number] [facility] 09:39:00 09:39:00 _J_AH [id number] Family Practic e 2019-08-19 2019-08-19 Shamika O VFP [place] - [id number] [facility] 00:00:00 00:00:00 Ige-Odunug [facility] beryl rankin OCEAN IMPORT REPRESENTATIVE: Medical - Practi c 9235 Brianne [email or web address] [email or web address], [address], [place] [address] , Ph. 2019-07-23 2019-07-23 Outpatient Ige-Harper [facility] [phone] [facility] 06:34:00 06:34:00 _J_AH [id number] Family Practic e Results Test Description Test Time Test Comments Results Result Sourc e Comments URINE CULTURE, NO 2021-05-12 SPECIMEN NUMBER: SENS 10:22:47 [id number] URINE CULTURE, NO SENS SPECIMEN NUMBER: [id number] SPECIMEN COMMENT: URINE SOURCE: URINE REPORT STATUS: FINAL ISOLATE NUMBER 1: IDENTIFICATION: 05/12/2021 >100,000 CFU/ML BETA-STREPTOCOCCUS GROUP B ADDITIONAL OBSERVATIONS: PENICILLIN AND AMPICILLIN ARE DRUGS OF CHOICE FOR TREATMENT OF B-HEMOLYTIC STREPTOCOCCAL INFECTIONS. SUSCEPTIBILITY TESTING OF PENICILLIN AND OTHER B-LACTAMS APPROVED BY THE US FOOD AND DRUG ADMINISTRATION FOR TREATMENT OF B-HEMOLYTIC STREPTOCOCCAL INFECTIONS NEED NOT BE PERFORMED ROUTINELY. ADDITIONAL OBSERVATIONS: 05/12/2021 10-50,000 CFU/ML UROGENITAL JERARDO PRESENT NO COMMON PATHOGENS CBC W/AUTO DIFF WITH PLATELETS 2021-05-11 05:13:41 Test Item Value Reference Range Interpretation Comme nts WBC (test code = 1001) 10.8 K/UL 3.5-11.0 RBC (test code = 1002) 3.47 M/UL 4.50-6.10 L HEMOGLOBIN (test code = 11.4 G/DL 13.5-17.0 L 1003) HEMATOCRIT (test code = 34.0 % 40.0-51.0 L 1004) MCV (test code = 1005) 98.0 fL 80.0-99.0 MCH (test code = 1006) 32.9 PG 25.0-33.0 MCHC (test code = 1007) 33.5 G/DL 31.0-36.0 RDW (test code = 1038) 12.1 % 11.5-15.0 NEUTROPHILS (test code = 49.1 % 1008) LYMPHOCYTES (test code = 44.0 % 1010) MONOCYTES (test code = 5.0 % 1011) EOSINOPHILS (test code = 1.1 % 1012) BASOPHILS (test code = 0.5 % 1013) IMMATURE GRANYLOCYTES (test 0.3 % code = 1036) NUCLEATED RBCS (test code = 0.0 /100 WBC'S See_Comment [Automated message] The 1065) system which ge nerated this result transmit mike reference range: 0.0. The reference range was not u sed to interpret this result as normal/abnormal . PLATELET COUNT (test code = 172 K/UL [phone]) ABSOLUTE NEUTROPHILS (test 5.28 K/UL 1.50-7.50 code = 1066) ABSOLUTE LYMPHOCYTES (test 4.73 K/UL 1.00-4.00 H code = 1067) ABSOLUTE MONOCYTES (test 0.54 K/UL 0.20-1.00 code = 1068) ABSOLUTE EOSINOPHILS (test 0.12 K/UL 0.00-0.50 code = 1040) ABSOLUTE BASOPHILS (test 0.05 K/UL 0.00-0.20 code = 1069) ABS IMMATURE GRANULOCYTES 0.03 K/UL 0.00-0.10 (test code = 1020) ABS NUCLEATED RBCS (test 0.00 K/UL 0.00-0.11 UNLESS OTHERWISE code = 98767) INDICATED, ALL TESTING PERFORMED [facility] [address] [place] [address], [place] [address] SIGN PAINTER APPRENTICE: PELON MESA M.D. CLIA NUMBER [id number] CAP ACCREDITATION N O. [id number]
[2021-07-18] MEDS ORDERED: TETANUS & DIPHTHERIA TOX,ADULT 0.5 ML VIAL ONE (08:07)
--- NOTE | 2021-07-18 08:16 | RAD REPORT ---
EXAM DESCRIPTION: CT - CTHCSPWOC - 07/18/2021 8:06 am CLINICAL HISTORY: PAIN, fall, laceration to back of head, possible loss of consciousness COMPARISON: No comparisons TECHNIQUE: Axial 5 mm thick images of the head were obtained. Axial 2 mm thick images of the cervic al spine were obtained with sagittal and coronal reconstruction images generated and reviewed. All CT scans are performed using dose optimization technique as appropriate and may include automated exposure control or mA/KV adjustment according to patient size. FINDINGS: No intracranial hemorrhage, mass, edema or acute intracranial finding. No acute infarction of the cortical level. No cortical edema or sulcal effacement. Moderate atrophy is present with vent ricles in proportion to volume loss. Arterial and physiologic calcifications present. Chronic ischemi c changes are present but appear mild. Mastoid air cells are clear. Partially visualized paranasal si nuses show extensive chronic sinusitis change and probable postsurgical change. No globe or orbit abn ormality seen. No skull fracture seen. No large scalp hematoma identifiable. Cervical bodies are normal in height. No subluxation abnormality seen. Asymmetry is created by left l ateral head and neck angulation during image acquisition degenerative cystic changes are present in t he lateral masses of C1 and subcortical degenerative cystic changes are present in the occipital cond yles. There is similar degenerative cystic change in the dens. C2-3 appears partially fused at both t he disc level in the posterior facet joint level. C4-5, C5-6 and C6-7 significant disc space narrowin g present with endplate spurring. No pathologic bone process seen. Multilevel facet joint degenerativ e changes are present. Left foraminal stenosis present at C3-4 and bilateral at C4-5. No fracture or acute bony abnormality. Central canal detail is inherently limited. No paraspinal mass or hematoma. IMPRESSION: No intracranial hemorrhage or acute CT Head finding. Patient has underlying moderate atr ophy and mild chronic ischemic change. Advanced cervical spine degenerative change present as detailed. No acute findings confirmed.
--- NOTE | 2021-07-18 08:31 | ER ---
Nurse's Notes [facility] Name: Silas Kirk Age: 89 yrs Sex: Male : 1930 Arrival Date: 07/18/2021 Time: 07:54 Bed 5 Private MD: Diagnosis: Laceration without foreign body of other part of head;Unspecified injury of head, initial encounter;Fall on same level from slipping, tripping and stumbling with subsequent striking against object Presentation: 07/18 07:54 Chief complaint: EMS states: Pt brought in by ems for glf. Unwitnessed. Denies use of ic1 blood thinners. Neg LOC. Abrasion and lac noted to occipital region of pt's head. 5mg of haldol given en route by ems for possible combative behavior. Coronavirus screen: Vaccine status:. Ebola Screen: No symptoms or risks identified at this time. Initial Sepsis Screen: Does the patient meet any 2 criteria? No. Patient's initial sepsis screen is negative. Does the patient have a suspected source of infection? No. Patient's initial sepsis screen is negative. Risk Assessment: Do you want to hurt yourself or someone else? Patient reports no desire to harm self or others. Onset of symptoms was July 18, 2021. 07:54 Method Of Arrival: EMS: [facility] ic1 07:54 Acuity: VICKIE 3 ic1 07:54 Chief complaint:. emerson 08:36 Care prior to arrival: None. Mechanism of Injury: Fall. Trauma event details:. Triage Assessment: 07:57 General: Appears in no apparent distress. Behavior is calm, cooperative. Pain: Denies ic1 pain. EENT: No deficits noted. Neuro: Level of Consciousness is awake, obeys commands, Oriented to none. Cardiovascular: Rhythm is sinus rhythm. Respiratory: No deficits noted. GI: No deficits noted. : No deficits noted. Derm: No deficits noted. Musculoskeletal: No deficits noted. Injury Description: Abrasion Laceration sustained to scalp. 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 - Social history:: Smoking status: Patient denies any tobacco usage or history of. - Immunization history: Last tetanus immunization: - up to date. Screenin:01 Abuse screen: Denies threats or abuse. Denies injuries from another. Nutritional ic1 screening: No deficits noted. Tuberculosis screening: No symptoms or risk factors identified. Fall Risk Fall in past 12 months (25 points). Secondary diagnosis (15 points) No IV (0 pts). Ambulatory Aid- None/Bed Rest/Nurse Assist (0 pts). Gait- Weak (10 pts.). Mental Status- Overestimates/Forgets Limitations (15 pts.). Total Cruz Fall Scale indicates High Risk Score (45 or more points). Side Rails Up X 2 Placed Close to Nursing Station Frequent Obs/Assessments Occuring. Primary Survey: 08:31 NO uncontrolled hemorrhage observed. A: The patient is alert. Airway: patent. emerson Breathing/Chest: Respiratory pattern: regular. Circulation: Cardiac rhythm: sinus rhythm Skin color: pink. Disability Alert. Exposure/Environment: There is no evidence of uncontrolled external bleeding. 08:35 Reassessment Breathing/Chest. emerson Assessment: 08:01 Reassessment: see triage. ic1 08:07 General: Appears in no apparent distress. Behavior is calm, cooperative. Pain: Denies emerson pain. Injury Description: Head injury sustained to right parietal area. 10:03 Reassessment: EMS here for pt pickup. Report given. Pt left in NAD. VSS. ic1 Vital Signs: 07:54 BP 129 / 63; Pulse 67; Resp 17; Temp 98.2; Pulse Ox 100% ; Weight 68.04 kg; Height 5 emerson ft. 11 in. (180.34 cm); 08:30 BP 112 / 48; Pulse 68; Resp 17; Pulse Ox 98% ; emerson 09:01 BP 122 / 52; Pulse 69; Resp 16; Pulse Ox 97% on R/A; ic1 07:54 Body Mass Index 20.92 (68.04 kg, 180.34 cm) emerson Berkley Coma Score: 08:07 Eye Response: spontaneous(4). Verbal Response: confused(4). Motor Response: obeys emerson commands(6). Total: 14. Trauma Score (Adult): 08:07 Eye Response: spontaneous(1); Verbal Response: confused(1); Motor Response: obeys emerson commands(2); Systolic BP: > 89 mm Hg(4); Respiratory Rate: 10 to 29 per min(4); Berkley Score: 14; Trauma Score: 12 ED Course: 07:54 Patient arrived in ED. ic1 07:54 Leila Kennedy [facility]-C [facility]. kb 07:54 Mckay Garcia DO is Attending Physician. kb 07:56 Triage completed. ic1 07:57 Arm band placed on. ic1 08:01 Patient has correct armband on for positive identification. Bed in low position. Call ic1 light in reach. Side rails up X2. 08:01 No provider procedures requiring assistance completed. ic1 08:06 CT Head C Spine In Process Unspecified. EDMS 08:30 Carey Mazariegos RN is Primary Nurse. emerson 08:30 Assist provider with laceration repair on back of head Patient tolerated 4 bianca emerson placed. 08:31 Patient maintains SpO2 saturation greater than 95% on room air. emerson 08:37 Thermoregulation: warm blanket given to patient. emerson 08:45 Called [facility] for Transport back to [facility]. sp 09:01 Patient did not have IV access during this emergency room visit. ic1 Administered Medications: 08:15 Drug: Tetanus-Diphtheria Toxoid Adult 0.5 ml {Compliance Monitor: [employer]. Exp: emerson 09/18/2022. Lot #: [id number]. } Route: IM; Site: right deltoid; 08:16 Follow up: Response: No adverse reaction emerson Intake: 08:30 PO: 0ml; Total: 0ml. emerson Outcome: 08:30 Discharge ordered by . kb 09:01 Discharged to assisted. Report called to COLTEN Wei ic1 09:01 Condition: stable 09:01 Discharge instructions given to assisted, Instructed on discharge instructions, follow up and referral plans. Demonstrated understanding of instructions, follow-up care. 10:04 Patient left the ED. ic1 Signatures: Dispatcher [employer] EDLA Leila Kennedy FNP-C FNP-Ckb Ivonne Solis Heather, RN RN emerson Pilar Braden RN RN ic1
--- NOTE | 2021-07-18 08:31 | EDPHYS ---
Physician Documentation [facility] Name: Silas Kirk Age: 89 yrs Sex: Male : 1930 Arrival Date: 07/18/2021 Time: 07:54 Bed 5 Private MD: ED Physician Mckay Ba HPI: 07/18 08:17 This 89 yrs old Male presents to ER via EMS with complaints of fall, head laceration. kb 08:11 EMS reports pt stood up from bed to go get coffee and fell backwards hitting head on furniture. . 08:17 Details of fall: The patient fell from an upright position, while standing. Onset: The kb symptoms/episode began/occurred just prior to arrival. Associated injuries: The patient sustained injury to the head, laceration. Severity of symptoms: At their worst the symptoms were moderate, in the emergency department the symptoms are unchanged. The patient has not experienced similar symptoms in the past. The patient has not recently seen a physician. 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 - Social history:: Smoking status: Patient denies any tobacco usage or history of. - Immunization history: Last tetanus immunization: - up to date. ROS: 08:08 Constitutional: Negative for fever, chills, and weight loss. kb 08:08 Skin: Positive for laceration(s), of the right parietal area. 08:08 All other systems are negative. Exam: 08:08 Constitutional: This is a well developed, well nourished patient who is awake, alert, kb and in no acute distress. ENT: Moist Mucous membranes Cardiovascular: Regular rate and rhythm with a normal S1 and S2. No gallops, murmurs, or rubs. No pulse deficits. Respiratory: Respirations even and unlabored. No increased work of breathing. Talking in full sentences MS/ Extremity: Pulses equal, no cyanosis. Neurovascular intact. Full, normal range of motion. 08:08 Head/face: Noted is no obvious of injury or deformity except a laceration(s), that is superficial, of the right parietal area. 08:08 Skin: injury, abrasion(s), small abrasion noted, of the right parietal area, laceration(s), the wound is approximately 1 cm(s), that can be described as clean, no foreign body, linear, with mild bleeding. 08:08 Neuro: Exam negative for acute changes. Vital Signs: 07:54 BP 129 / 63; Pulse 67; Resp 17; Temp 98.2; Pulse Ox 100% ; Weight 68.04 kg; Height 5 emerson ft. 11 in. (180.34 cm); 08:30 BP 112 / 48; Pulse 68; Resp 17; Pulse Ox 98% ; emerson 09:01 BP 122 / 52; Pulse 69; Resp 16; Pulse Ox 97% on R/A; ic1 07:54 Body Mass Index 20.92 (68.04 kg, 180.34 cm) emerson Grant Coma Score: 08:07 Eye Response: spontaneous(4). Verbal Response: confused(4). Motor Response: obeys emerson commands(6). Total: 14. Trauma Score (Adult): 08:07 Eye Response: spontaneous(1); Verbal Response: confused(1); Motor Response: obeys emerson commands(2); Systolic BP: > 89 mm Hg(4); Respiratory Rate: 10 to 29 per min(4); Berkley Score: 14; Trauma Score: 12 Laceration: 08:29 Wound Repair of 3cm ( 1.2in ) subcutaneous laceration to right parietal area. Linear kb shaped.. Distal neuro/vascular/tendon intact. Wound prep: Moderate cleansing with betadine by nurse, Wound irrigation with saline. Skin closed with 4 1-0 Deandra using staple gun. Patient tolerated well. MDM: 07:54 Patient medically screened. kb 08:11 Data reviewed: vital signs, nurses notes. Data interpreted: Pulse oximetry: on room air kb is 100 %. Interpretation: normal. 08:29 Counseling: I had a detailed discussion with the patient and/or guardian regarding: the kb historical points, exam findings, and any diagnostic results supporting the discharge/admit diagnosis, radiology results, the need for outpatient follow up, a family practitioner, to return to the emergency department if symptoms worsen or persist or if there are any questions or concerns that arise at home. 07/18 07:55 Order name: CT Head C Spine; Complete Time: 08:19 kb 07/18 07:55 Order name: Wound Care kb Administered Medications: 08:15 Drug: Tetanus-Diphtheria Toxoid Adult 0.5 ml {Joint Sealer: [employer]. Exp: emerson 09/18/2022. Lot #: [id number]. } Route: IM; Site: right deltoid; 08:16 Follow up: Response: No adverse reaction ki Disposition: 07/19 02:08 Co-signature as Attending Physician, Mckay Ba DO I agree with the assessment and ms3 plan of care. Disposition Summary: 07/18/21 08:30 Discharge Ordered Location: Home kb Condition: Stable kb Diagnosis - Laceration without foreign body of other part of head kb - Unspecified injury of head, initial encounter kb - Fall on same level from slipping, tripping and stumbling with subsequent striking kb against object Followup: kb - With: Emergency Department - When: As needed - Reason: Worsening of condition Followup: kb - With: Private Physician - When: 2 - 3 days - Reason: Recheck today's complaints, Continuance of care, Re-evaluation by your physician Discharge Instructions: - Discharge Summary Sheet kb - Laceration Care, Adult, [id number] kb - Head Injury, Adult, [id number] kb Forms: - Medication Reconciliation Form kb - Thank You Letter kb - Antibiotic Education kb - Prescription Opioid Use kb Signatures: Dispatcher [employer] Leila Ritchie, JORGE BADILLO-Mckay Kruger DO DO ms3 Au-Carey Moreno, RN RN Pilar Ni RN RN ic1
[2021-07-18 10:12] VITALS: TEMP 98.2
[2021-07-18 10:14] VITALS: BP 122/52; O2SAT 97
== END 2021-07-18 10:04 | disposition home or self-care (01) ==
LOC: ER 07:49
PROC: 0JQ10ZZ Repair Face Subcutaneous Tissue and Fascia, Open Approach (ICD-10-PCS; principal; 2021-07-18)
DX: S01.81XA Laceration without foreign body of other part of head, initial encounter (principal); W01.190A Fall on same level from slipping, tripping and stumbling with subsequent striking against furniture, initial encounter; Z23 Encounter for immunization; G30.9 Alzheimer's disease, unspecified; F02.80 Dementia in other diseases classified elsewhere, unspecified severity, without behavioral disturbance, psychotic disturbance, mood disturbance, and anxiety; G20 Parkinson's disease
CPT/HCPCS: 70450; 72125; 90471; 90714; 99285; G0390

== ENCOUNTER 2021-08-09 06:16 | Emergency (ER) | payer OTHER ==
--- OUTSIDE RECORDS SUMMARY | 2021-08-09 06:20 | XMS REPORT | Continuity of Care Document ---
:1930 Author Organization [facility] t Address [address] [place] [address] Dr. Muniz. [address] [place] [address] Care Team Providers Name Role Phone Aleksander [...] Date Expiration Date Colt samuels [facility] [place] [id number] 2019 PLUS CLASSIC/VALUE 00:00:00 [facility] [place] - [id number] 2019 [place] 00:00:00 (MEDICARE REPLACEMENT/ADVANT AGE - HMO) Problems Condition Condition Condition Status Onset Resolution Last Treating Co mments Source Name Details Category Date Date Treatment Clinician Date Blood Blood Problem Active [facility] coagulatio Coagulatio 2-10 Fa matthew n disorder n Disorder 00:00: Pr actic 00 e Peripheral Peripheral Problem Active [place] [facility] vascular Vascular 2-10 Family disease Disease 00:00: Practic 00 e 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 8-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 [...] 6-17 it y of a a 00:00: [place] 00 Medical Branch Pericardia Pericardia Disease Active 2019- U nivers l effusion l effusion 6-17 it y of 00:00: [place] 00 Medical Branch Diverticul Diverticul Disease Active 2020-0 U nivers itis large itis large 6-16 it y of intestine intestine [place] w[place] Medical perforatio perforatio Br anch n or n or abscess abscess w/o w/o bleeding bleeding Leg edema Leg edema Disease Active 2019- Uni vers 6-16 ity of 00:00: [place] 00 Medical Branch 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 6-16 ity of 00:00: [place] 00 Medical Branch Hyperlipid Hyperlipid Problem [...] diabetes 2-13 ity of mellitus mellitus 00:00: [place] [address] Medical Branch Essential Essential Disease Active Uni vers hypertensi hypertensi 2-13 it y of on on 00:00: [place] [address] Medical Branch Allergies, Adverse Reactions, Alerts Allergy Allergy Status Severity Reaction(s) Onset Inactive Treating Comm ents Source Name Type Date Date Clinician ASPIRIN DRUG Active Low Unknown-Cmnt Uni vers INGREDI 2-13 ity of 00:00: [place] [address] Medical Branch MILK DRUG Active Low Unknown-Cmnt Univ ers INGREDI 2-13 ity of 00:00: [place] [address] Medical Branch NO KNOWN Drug Active Univers ALLERGIE Class ity of S [facility] Social History Social Habit Start Date Stop Date Quantity Comments Source Exposure to Not sure [facility] SARS-CoV-2 [facility] (event) Branch Alcohol intake 2021-02-19 2021-02-19 Ex-drinker [facility] 00:00:00 00:00:00 (finding) [facility] Tobacco use and 2015-06-13 2015-06-13 Never used Universit y of exposure 00:00:00 00:00:00 [facility] Sex Assigned At [birth year] Universit y of 00:00:00 00:00:00 [facility] Smoking Status Start Date Stop Date Source Former Smoker [place] [facility] Never smoker [facility] Medications Ordered Filled Start Stop Current Ordering Indication Dosage Frequency Signature Comments Components Source Medication Medication Date Date Medication? Clinician (SIG) Name Name lactulose 0 Yes [id number] 30mL Take 30 mL Univers 10 gram/15 8-13 by mouth 3 ity of mL oral 00:00: (three) [place] solution 00 times Medical daily as Branch needed for Constipati on or For bowel movement. polyethylen 2020-0 Yes [id number] 1{packe Take 1 Univers e glycol 8-13 t} Packet by ity of 3350 00:00: mouth 2 [place] (MIRALAX) 00 (two) Medical 17 gram times Branch powder daily. lactulose 2020-0 Yes [id number] 30mL Take 30 mL Univers 10 gram/15 8-13 by mouth 3 ity of mL oral 00:00: (three) [place] solution 00 times Medical daily as Branch needed for Constipati on or For bowel movement. polyethylen 2020-0 Yes [id number] 1{packe Take 1 Univers e glycol 8-13 t} Packet by ity of 3350 00:00: mouth 2 [place] (MIRALAX) 00 (two) Medical 17 gram times Branch powder daily. lactulose 2020-0 Yes [id number] 30mL Take 30 mL Univers 10 gram/15 8-13 by mouth 3 ity of mL oral 00:00: (three) [place] solution 00 times Medical daily as Branch needed for Constipati on or For bowel movement. polyethylen 2020-0 Yes [id number] 1{packe Take 1 Univers e glycol 8-13 t} Packet by ity of 3350 00:00: mouth 2 [place] (MIRALAX) 00 (two) Medical 17 gram times Branch powder daily. lactulose 2020-0 Yes [id number] 30mL Take 30 mL Univers 10 gram/15 8-13 by mouth 3 ity of mL oral 00:00: (three) [place] solution 00 times Medical daily as Branch needed for Constipati on or For bowel movement. polyethylen 2020-0 Yes [id number] 1{packe Take 1 Univers e glycol 8-13 t} Packet by ity of 3350 00:00: mouth 2 [place] (MIRALAX) 00 (two) Medical 17 gram times Branch powder daily. lactulose 2020-0 Yes [id number] 30mL Take 30 mL Univers 10 gram/15 8-13 by mouth 3 ity of mL oral 00:00: (three) [place] solution 00 times Medical daily as Branch needed for Constipati on or For bowel movement. polyethylen Yes [id number] 1{packe Take 1 Univers e glycol 8-13 t} Packet by ity of 3350 00:00: mouth 2 [place] (MIRALAX) 00 (two) Medical 17 gram times Branch powder daily. docusate Yes [id number] 250mg Take 1 Univers sodium 250 8-01 08 capsule by ity of mg capsule 00:00: mouth once [place] 00 daily as Medical needed for Branch Constipati on. polyethylen Yes [id number] 1{packe Take 1 Univers e glycol 8-01 08 t} Packet by ity of 3350 00:00: mouth once [place] (MIRALAX) 00 daily as Medica l 17 gram needed for Branch powder Constipati on. ondansetron Yes [id number] 4mg Take 1 Univers 4 mg 8-01 08 tablet by ity of disintegrat 00:00: mouth [place] ing tablet 00 every 4 Medica l (four) Branch hours as needed for Nausea and Vomiting (N/V). docusate Yes [id number] 250mg Take 1 Univers sodium 250 8-01 08 capsule by ity of mg capsule 00:00: mouth once [place] 00 daily as Medical needed for Branch Constipati on. polyethylen Yes [id number] 1{packe Take 1 Univers e glycol 8-01 08 t} Packet by ity of 3350 00:00: mouth once [place] (MIRALAX) 00 daily as Medica l 17 gram needed for Branch powder Constipati on. ondansetron Yes [id number] 4mg Take 1 Univers 4 mg 8-01 08 tablet by ity of disintegrat 00:00: mouth [place] ing tablet 00 every 4 Medica l (four) Branch hours as needed for Nausea and Vomiting (N/V). docusate Yes [id number] 250mg Take 1 Univers sodium 250 8-01 08 capsule by ity of mg capsule 00:00: mouth once [place] 00 daily as Medical needed for Branch Constipati on. polyethylen Yes [id number] 1{packe Take 1 Univers e glycol 8-01 08 t} Packet by ity of 3350 00:00: mouth once [place] (MIRALAX) 00 daily as Medica l 17 gram needed for Branch powder Constipati on. ondansetron Yes [id number] 4mg Take 1 Univers 4 mg 8-01 08 tablet by ity of disintegrat 00:00: mouth [place] ing tablet 00 every 4 Medica l (four) Branch hours as needed for Nausea and Vomiting (N/V). docusate Yes [id number] 250mg Take 1 Univers sodium 250 8-01 08 capsule by ity of mg capsule 00:00: mouth once [place] 00 daily as Medical needed for Branch Constipati on. polyethylen Yes [id number] 1{packe Take 1 Univers e glycol 8-01 08 t} Packet by ity of 3350 00:00: mouth once [place] (MIRALAX) 00 daily as Medica l 17 gram needed for Branch powder Constipati on. ondansetron Yes [id number] 4mg Take 1 Univers 4 mg 8-01 08 tablet by ity of disintegrat 00:00: mouth [place] ing tablet 00 every 4 Medica l (four) Branch hours as needed for Nausea and Vomiting (N/V). docusate Yes [id number] 250mg Take 1 Univers sodium 250 8-01 08 capsule by ity of mg capsule 00:00: mouth once [place] 00 daily as Medical needed for Branch Constipati on. polyethylen Yes [id number] 1{packe Take 1 Univers e glycol 8-01 08 t} Packet by ity of 3350 00:00: mouth once [place] (MIRALAX) 00 daily as Medica l 17 gram needed for Branch powder Constipati on. ondansetron Yes [id number] 4mg Take 1 Univers 4 mg 8-01 08 tablet by ity of disintegrat 00:00: mouth [place] ing tablet 00 every 4 Medica l (four) Branch hours as needed for Nausea and Vomiting (N/V). docusate Yes [id number] 100mg Take 1 Univers 100 mg 7-03 [id number] capsule by ity o f capsule 00:00: mouth [place] 00 daily. Medical Branch docusate 2020-0 Yes [id number] 100mg Take 1 Univers 100 mg 7- [id number] capsule by ity o f capsule 00:00: mouth [place] 00 daily. Medical Branch docusate 2020-0 Yes [id number] 100mg Take 1 Univers 100 mg 7- 281957 capsule by ity o f capsule 00:00: mouth [place] 00 daily. Medical Branch docusate 2020-0 Yes [id number] 100mg Take 1 Univers 100 mg 7- 122334 capsule by ity o f capsule 00:00: mouth [place] 00 daily. Medical Branch docusate 2020-0 Yes [id number] 100mg Take 1 Univers 100 mg 7- [id number] capsule by ity o f capsule 00:00: mouth [place] 00 daily. Medical Branch METFORMIN 2020-0 Yes 500mg Take 500 Uni vers HCL 7-02 mg by ity of (METFORMIN 18:27: mouth 2 [place] ORAL[place] 12 (two) Medical times [place] daily. losartan 50 2020-0 Yes 50mg Take 50 mg Univers mg tablet 7-02 by mouth ity of 18:27: daily. [place] [address] Medical Branch atorvastati 2020-0 Yes 40mg Take 40 mg Univers n 40 mg 7-02 by mouth ity of tablet 18:27: at [place] [address] bedtime. Medical Branch omeprazole 2020-0 Yes 40mg Take 40 mg U nivers 40 mg 7-02 by mouth ity of capsule 18:27: daily. [address] tamsulosin 2020-0 Yes Take by Uni vers 0.4 mg 24 7-02 mouth ity of hr capsule 18:27: daily. [address] sucralfate 2020-0 Yes 1g Take 1 g Uni vers 1 gram 7-02 by mouth ity of tablet 18:27: before [place] [address] meals and Medical at [place] bedtime. FENUGREEK 2020-0 Yes 610mg Take 610 Uni vers SEED 7-02 mg by ity of EXTRACT 18:27: mouth. [place] [address] Medical Branch Mercy 2020-0 Yes Take by Univers Prim-Linole 7-02 mouth. ity of ic-Gamoleni 18:27: [place] [facility] 12 Medical (PRIMROSE Branch OIL) 1,000 mg Cap METFORMIN 2020-0 Yes 500mg Take 500 Uni vers HCL 7-02 mg by ity of (METFORMIN 18:27: [place] 2 [place] ORAL[place] 12 (two) Medical times Branch daily. losartan 50 2020-0 Yes 50mg Take 50 mg Univers mg tablet 7-02 by mouth ity of 18:27: daily. [address] Branch atorvastati 2020-0 Yes 40mg Take 40 mg Univers n 40 mg 7-02 by mouth ity of tablet 18:27: at [place] [address] bedtime. Medical Branch omeprazole 2020-0 Yes 40mg Take 40 mg U nivers 40 mg 7-02 by mouth ity of capsule 18:27: daily. [address] Branch tamsulosin 2020-0 Yes Take by Uni vers 0.4 mg 24 7-02 mouth ity of hr capsule 18:27: daily. [address] sucralfate 2020-0 Yes 1g Take 1 g Uni vers 1 gram 7-02 by mouth ity of tablet 18:27: before [place] [address] meals and Medical at [place] bedtime. FENUGREEK 2020-0 Yes 610mg Take 610 Uni vers SEED 7-02 mg by ity of EXTRACT 18:27: mouth. [address] Mercy 2020-0 Yes Take by Univers Prim-Linole 7-02 mouth. ity of ic-Gamoleni 18:27: [place] [address] Medical (PRIMROSE Branch OIL) 1,000 mg Cap METFORMIN 2020-0 Yes 500mg Take 500 Uni vers HCL 7-02 mg by ity of (METFORMIN 18:27: [place] ORAL[place] 12 (two) Medical times [place] daily. losartan 50 2020-0 Yes 50mg Take 50 mg Univers mg tablet 7-02 by mouth ity of 18:27: daily. [address] atorvastati 2020-0 Yes 40mg Take 40 mg Univers n 40 mg 7-02 by mouth ity of tablet 18:27: at [place] [address] bedtime. Medical Branch omeprazole 2020-0 Yes 40mg Take 40 mg U nivers 40 mg 7-02 by mouth ity of capsule 18:27: daily. [address] tamsulosin 2020-0 Yes Take by Uni vers 0.4 mg 24 7-02 mouth ity of hr capsule 18:27: daily. [address] sucralfate 2020-0 Yes 1g Take 1 g Uni vers 1 gram 7-02 by mouth ity of tablet 18:27: before [place] [address] meals and Medical at [place] bedtime. FENUGREEK 2020-0 Yes 610mg Take 610 Uni vers SEED 7-02 mg by ity of EXTRACT 18:27: mouth. [address] Branch [facility] 2020-0 Yes Take by Univers Prim-Linole 7-02 mouth. ity of ic-Gamoleni 18:27: [place] [address] Medical (PRIMROSE Branch OIL) 1,000 mg Cap METFORMIN 2020-0 Yes 500mg Take 500 Uni vers HCL 7-02 mg by ity of (METFORMIN 18:27: [place] OR[place] 12 (two) Medical times [place] daily. losartan 50 2020-0 Yes 50mg Take 50 mg Univers mg tablet 7-02 by mouth ity of 18:27: daily. [address] atorvastati 2020-0 Yes 40mg Take 40 mg Univers n 40 mg 7-02 by mouth ity of tablet 18:27: at [place] [address] bedtime. Medical Branch omeprazole 2020-0 Yes 40mg Take 40 mg U nivers 40 mg 7-02 by mouth ity of capsule 18:27: daily. [address] tamsulosin 2020-0 Yes Take by Uni vers 0.4 mg 24 7-02 mouth ity of hr capsule 18:27: daily. [address] sucralfate 2020-0 Yes 1g Take 1 g Uni vers 1 gram 7-02 by mouth ity of tablet 18:27: before [place] [address] meals and Medical at [place] bedtime. FENUGREEK 2020-0 Yes 610mg Take 610 Uni vers SEED 7-02 mg by ity of EXTRACT 18:27: mouth. [address] [facility] 2020-0 Yes Take by Univers Prim-Linole 7-02 mouth. ity of ic-Gamoleni 18:27: [place] [address] Medical (PRIMROSE Branch OIL) 1,000 mg Cap METFORMIN 2020-0 Yes 500mg Take 500 Uni vers HCL 7-02 mg by ity of (METFORMIN 18:27: [place] 2 [place] ORAL[place] 12 (two) Medical times [place] daily. losartan 50 2020-0 Yes 50mg Take 50 mg Univers mg tablet 7-02 by mouth ity of 18:27: daily. [address] atorvastati 2020-0 Yes 40mg Take 40 mg Univers n 40 mg 7-02 by mouth ity of tablet 18:27: at [place] [address] bedtime. Medical Branch omeprazole 2020-0 Yes 40mg Take 40 mg U nivers 40 mg 7-02 by mouth ity of capsule 18:27: daily. [address] tamsulosin Yes Take by Uni vers 0.4 mg 24 10-30 mouth ity of hr capsule 18:27: daily. [address] sucralfate 2019- Yes 1g Take 1 g Uni vers 1 gram 10-30 by mouth ity of tablet 18:27: before [place] [address] meals and Medical at Branch bedtime. FENUGREEK Yes 610mg Take 610 Uni vers SEED 10-30 mg by ity of EXTRACT 18:27: mouth. [address] [facility] Yes Take by Univers Prim-Linole 10-30 mouth. ity of ic-Gamoleni 18:27: [place] [address] Medical (PRIMROSE Branch OIL) 1,000 mg Cap [...] route. omeprazole omeprazole No 1capsul Q1D omeprazole [facility] 40 mg 40 mg e(s) [...] Ordered Filled Immunization Date Status Comments [facility] e Immunization Name Name SARS-COV-2 COVID-19 2020-08-11 Completed Unive rsity of PFIZER VACCINE 00:00:00 [facility] SARS-COV-2 COVID-19 2020-08-11 Completed Unive rsity of PFIZER VACCINE 00:00:00 [facility] SARS-COV-2 COVID-19 2020-08-11 Completed Unive rsity of PFIZER VACCINE 00:00:00 [facility] SARS-COV-2 COVID-19 2020-08-11 Completed Unive rsity of PFIZER VACCINE 00:00:00 [facility] SARS-COV-2 COVID-19 2020-08-11 Completed Unive rsity of PFIZER VACCINE 00:00:00 [facility] SARS-COV-2 COVID-19 2020-07-21 Completed Unive rsity of PFIZER VACCINE 00:00:00 [facility] SARS-COV-2 COVID-19 2020-07-21 Completed Unive rsity of PFIZER VACCINE 00:00:00 [facility] SARS-COV-2 COVID-19 2020-07-21 Completed Unive rsity of PFIZER VACCINE 00:00:00 [facility] SARS-COV-2 COVID-19 2020-07-21 Completed Unive rsity of PFIZER VACCINE 00:00:00 [facility] SARS-COV-2 COVID-19 2020-07-21 Completed Unive rsity of PFIZER VACCINE 00:00:00 [facility] influenza, influenza, 2018-01-29 Completed [facility] injectable, injectable, 00:00:00 Practice quadrivalent quadrivalent Td 2015-06-12 Completed University 00:00:00 [facility] Td 2015-06-12 Completed University 00:00:00 [facility] Td 2015-06-12 Completed University of 00:00:00 [facility] Td 2015-06-12 Completed University of 00:00:00 [facility] Td 2015-06-12 Completed University of 00:00:00 [facility] Vital Signs Vital Name Observation Time Observation Value Comments Source Systolic blood 2021-02-19 14:09:00 97 mm[Hg] Univer sity of pressure [facility] Diastolic blood 2021-02-19 14:09:00 56 mm[Hg] Unive rsity of [facility] Heart rate 2021-02-19 14:09:00 83 /min Universi ty [facility] Body temperature 2021-02-19 14:09:00 35.83 Aruna [facility] Respiratory rate 2021-02-19 14:09:00 14 /min [facility] Body height 2021-02-19 14:09:00 170.2 cm [facility] Body weight 2021-02-19 14:09:00 66.225 kg [facility] BMI 2021-02-19 14:09:00 22.87 kg/m2 [facility] Oxygen saturation in 2021-02-19 14:09:00 100 /min [facility] Arterial blood by [facility] Pulse oximetry Branch Height 2020-08-11 00:00:00 66 [in_i] [facility] BMI (Body Mass 2020-08-11 00:00:00 24.2 kg/m2 [facility] Family Index) Practice Body Weight 2020-08-11 00:00:00 150 [lb_av] [facility] Height 2020-05-12 00:00:00 66 [in_i] [facility] Procedures Procedure Date / Time Performed Performing Clinician [facility] e REFERRAL- 2021-05-10 06:01:00 Doctor Unassigned, No Univer [facility] REQUEST/RESPONSE Name Medical Branch Encounters Start End Encounter Admission Attending Care Care Encounter Source Date/Time Date/Time Type Type Clinicians Facility Department ID 2021-03-[address] [facility] [id number] Univers 03:10:00 ity of [facility] 2021-03-[address] [facility] [id number] Univers 15:13:46 ity of [facility] 2021-03-[address] [facility] [id number] Univers 12:15:36 ity of [facility] 2021-06-20 2021-06-20 Letter KYLEIGH Das 1.2.840.114 [id number] Univers 00:00:00 00:00:00 (Out) Jania Smith HINA [id number] it y of HOSPITAL 4.2.7.2.686 [place] as [id number] [address] 2021-06-18 2021-06-18 Laboratory Only, Ang Db Test [facility] 1.2.8 40.114 [id number] Univers 15:00:00 15:15:[address] [facility] [id number] ity of [place] 4.2.7.2.686 [place] as TRISHA?BLEA [phone] [place] [address] MEDICAL OFFICE BUILDING 2021-06-18 2021-06-18 Outpatient R [facility] [id number] Univers 15:00:00 15:00:00 [id number] ity of [facility] 2021-06-18 2021-06-18 Outpatient R URIEL [facility] [id number] Univers 15:00:00 15:00:00 CINDY ity [facility] 2021-05-10 2021-05-10 Orders Doctor KYLEIGH [id number] [id number] Univers 00:00:00 00:00:00 Only Unassigned, HINA 350.1.13.10 ity of [place] [facility] 4.2.7.2.686 [place] as [phone] [address] 2021-03-08 2021-03-08 Outpatient R KALANI [facility] [id number] Univers 09:30:00 09:30:00 TRISTA [id number] ity [facility] 2021-02-19 2021-02-19 [facility] 1.2.840.114 [id number] Univers 08:56:46 10:03:35 Visit Kyleigh Lerma 350.1.13.10 i ty of Maximiliano Chaudhry 4.2.7.2.686 [place] Profess[place] [id number] [facility] [address] Branch Building 2021-02-19 2021-02-19 Outpatient R SHAUN, [facility] [id number] Univers 09:30:00 09:30:00 KYLEIGH [id number] [facility] 2021-02-19 2021-02-19 Outpatient Isela DUNN [facility] [id number] Univers 09:30:00 09:30:00 KYLEIGH [facility] 2020-10-19 2020-10-19 Outpatient Miller_S_AH VFP VFP [phone] [facility] 05:49:00 05:49:00 [id number] Family Practic e 2020-08-31 2020-08-31 Outpatient Isela BARTHodan, 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 1.2.840.114 [id number] 14:59:24 15:14:24 Visit Lab Main [place] 350.1.13.10 [place] 4.2.7.2.686 Professio [id number] [place] [address] Building 2020-08-13 2020-08-13 Outpatient Ajibade_O_A VFP VFP [phone] [facility] 08:04:00 08:04:00 H [id number] Family Practic e 2020-08-11 2020-08-11 Outpatient Isela ROSARIO, [facility] [id number] Univers 10:20:00 10:20:00 ISABEL [facility] 2020-08-11 2020-08-11 Outpatient Ajibade_O_A VFP VFP [phone] [facility] 05:20:00 05:20:00 H [id number] Family Practic e 2020-08-11 2020-08-11 iana [facility] [place] - [id number] V illage 00:00:00 00:00:00 Moises Burch Famil y HEALTH CARE FACILITY ADMINISTRATOR: 9235 Medical - Pract fortunato Snelly, [email or web address] [address] [place] [address] , Ph. 2020-07-21 2020-07-21 Outpatient Isela ROSARIO, [facility] [id number] [facility] 10:20:00 10:20:00 ISABEL [facility] 2020-07-21 2020-07-21 Outpatient Isela ROSARIO [facility] [id number] Univers 10:10:00 10:10:00 ISABEL [facility] 2020-05-21 2020-05-21 Outpatient Ajibade_O_A VFP VFP [phone] [facility] 04:42:00 04:42:00 H [id number] Family Practic e 2020-05-21 2020-05-21 Outpatient VFP VFP [id number] Village 04:42:00 04:42:00 [id number] Family Practic e 2020-05-12 2020-05-12 Outpatient Ajibade_O_A VFP VFP [phone] Village 01:50:00 01:50:00 H [id number] Family Practic e 2020-05-12 2020-05-12 [place] VFP [place] - [id number] V illage 00:00:00 00:00:00 RadhafarhanMoises Famil y HEALTH CARE FACILITY ADMINISTRATOR: 9235 Medical - Pract ic Brianne Young, [email or web address] [address] [address] , Ph. 2020-01-09 2020-01-09 Outpatient Ige-Odunuga VFP VFP [phone] Village 01:30:00 01:30:00 _MIL [id number] Family Practic e 2020-01-09 2020-01-09 Outpatient Ige-Odun[place] VFP VFP [phone] Village 01:30:00 01:30:00 _NikitaAH [id number] Family Practic e 2020-01-07 2020-01-07 Outpatient Ige-Odunuga VFP VFP [phone] Village 06:23:00 06:23:00 _NikitaAH [id number] Family Practic e 2019-12-20 2019-12-20 Outpatient Ige-Odunuga VFP VFP [phone] Village 12:11:00 12:11:00 _MIL [id number] Family Practic e 2019-12-17 2019-12-17 [place] VFP [place] - [id number] V illage 00:00:00 00:00:00 Gunner [facility] Demarco bolton HEALTH CARE FACILITY ADMINISTRATOR: Medical - Practi c 9235 Brianne [email or web address] [facility], [place] [address], [place] [address] , Ph. 2019-11-18 2019-11-18 [facility]patient [facility] [id number] [facility] 10:00:00 10:00:00 MICHAEL [facility] 2019-11-18 2019-11-18 Outpatient Ige-Odunuga VFP VFP [id number] [facility] 03:51:00 03:51:00 _J_AH [id number] Family Practic e 2019-11-12 2019-11-12 [place] VFP [place] - [id number] V illage 00:00:00 00:00:00 [facility] beryl [place] HEALTH CARE FACILITY ADMINISTRATOR: Medical - Practi c 9235 Brianne [email or web address] [facility], [place] [address], [place] [address] , Ph. 2019-11-05 2019-11-05 Outpatient Ige-Odunuga VFP VFP [phone] [place] [address] 11:42:00 11:42:00 _J_AH [id number] Family Practic e 2019-10-15 2019-10-15 Emergency [facility] E[facility] [id number] Univers 04:05:03 04:05:03 DAREN [facility] 2019-10-02 2019-10-02 Emergency [facility] ERT [id number] Univers 09:31:52 09:31:52 KEYANA [facility] 2019-08-28 2019-08-28 Outpatient Ige-Odunuga VFP VFP [id number] [facility] 09:39:00 09:39:00 _J_AH [id number] Family Practic e 2019-08-19 2019-08-19 Shamika O VFP [place] - [id number] [facility] 00:00:00 00:00:00 [facility] beryl rankin HEALTH CARE FACILITY ADMINISTRATOR: Medical - Practi c [id number] [email or web address] [facility], [address], [place] [address] , Ph. 2019-07-23 2019-07-23 Outpatient [facility] [phone] [facility] 06:34:00 06:34:00 _[id number] Family Practic e Results Test Description Test Time Test Comments Results Result Sourc e Comments URINE CULTURE, NO 2021-05-12 SPECIMEN NUMBER: SENS 10:22:47 [id number] URINE CULTURE, NO SENS SPECIMEN NUMBER: [id number] SPECIMEN COMMENT: URINE SOURCE: URINE REPORT STATUS: [...] PLATELET COUNT (test code = 172 K/UL [phone]) ABSOLUTE NEUTROPHILS (test 5.28 K/UL 1.50-7.50 code [...] 0.00 K/UL 0.00-0.11 UNLESS OTHERWISE code = 77286) INDICATED, ALL TESTING PERFORMED [facility] [address] [place] [address], [place] [address] SENIOR ENGINEER: PELON MESA M.D. CLIA NUMBER [id number] CAP ACCREDITATION N O. [id number]
--- NOTE | 2021-08-09 07:20 | RAD REPORT ---
EXAM DESCRIPTION: CT - C Spine Wo Con - 08/09/2021 7:00 am CLINICAL HISTORY: Trip and fall, head and neck injury, laceration back of head COMPARISON: CT imaging 07/18/2021 TECHNIQUE: Axial 2 mm thick images of the cervical spine were obtained with sagittal and coronal rec onstruction images generated and reviewed. All CT scans are performed using dose optimization technique as appropriate and may include automated exposure control or mA/KV adjustment according to patient size. FINDINGS: Cervical bodies are normal in height. No subluxation abnormality seen. Left lateral tilt o f the cervical spine may be part of degenerative scoliotic curvature or a positioning artifact within the scanner. Occipital condyles of the skullbase are normally positioned on the lateral masses of C1 which in turn are normally positioned on the body of C2. Disc space narrowing is present between C4 and C7. No fracture or acute bony abnormality. No paraspinal mass or hematoma. Central canal detail is inherently limited on CT imaging. Dense carotid bulb calcifications present. IMPRESSION: No fracture or acute cervical spine finding. 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
--- NOTE | 2021-08-09 07:22 | RAD REPORT ---
EXAM DESCRIPTION: CT - Head Brain Wo Cont - 08/09/2021 7:00 am CLINICAL HISTORY: trauma, fall with trauma to the posterior head, laceration COMPARISON: Head C Spine Mpr Wo Con dated 07/18/2021 TECHNIQUE: Axial 5 mm thick images of the head were obtained without IV contrast. All CT scans are performed using dose optimization technique as appropriate and may include automated exposure control or mA/KV adjustment according to patient size. FINDINGS: No intracranial hemorrhage, mass, edema or shift of mid-line structures. No cortical level infarction. No cortical edema or sulcal effacement. No abnormal extra-axial fluid collections. Moder ate atrophy and mild to moderate chronic ischemic findings are stable over the short interval since . Mastoid air cells are clear. Postsurgical changes in the ethmoid air cells are noted. 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 These are stable findings. Small posterior scalp hematoma present. Underlying bone is intact. No foreign body. IMPRESSION: No acute intracranial finding. Small posterior scalp hematoma is present with underlying skull intact. No new intracranial finding since July 18 examination.
[2021-08-09] MEDS ORDERED: LIDOCAINE 1% W/EPI 1:100,000 MDV 50 ML VIAL ONE (08:17)
--- NOTE | 2021-08-09 09:01 | ER ---
Nurse's Notes [facility] Name: Silas Kirk Age: 89 yrs Sex: Male : 1930 Arrival Date: 08/09/2021 Time: 06:17 Bed 3 Private MD: Diagnosis: Unspecified injury of head, initial encounter;Scalp Laceration Presentation: 08/09 06:18 Chief complaint: EMS states: pt is from [place] side. pt had an unwitnessed fall from as6 standing position. pt hit head. unknown LOC. hit head hit a window seal. laceration to back of head. Coronavirus screen: At this time, the client does not indicate any symptoms associated with coronavirus-19. Ebola Screen: No symptoms or risks identified at this time. Initial Sepsis Screen: Does the patient meet any 2 criteria? No. Patient's initial sepsis screen is negative. Does the patient have a suspected source of infection? No. Patient's initial sepsis screen is negative. Risk Assessment: Do you want to hurt yourself or someone else? Unable to obtain. Onset of symptoms was August 09, 2021. Care prior to arrival: Cervical collar in place. IV initiated. 18 GA, in the left antecubital area. 06:18 Method Of Arrival: EMS: [facility] as6 06:18 Acuity: VICKIE 2 as6 06:24 Mechanism of Injury: Fall from standing position. Trauma event details: Injury as6 occurred: at home. 06:57 Care prior to arrival: Cervical collar in place. IV initiated. 18 GA, in the left as6 antecubital area. Trauma Activation: Alert Physician: ED Physician; Name: ; Notified At: ; Arrived At: Physician: General Surgeon; Name: ; Notified At: ; Arrived At: Physician: Radiology; Name: ; Notified At: ; Arrived At: Physician: Respiratory; Name: ; Notified At: ; Arrived At: Physician: Lab; Name: ; Notified At: ; Arrived At: Historical: - Allergies: 06:23 Aspirin; as6 06:23 Milk Containing Products; as6 - PMHx: 06:23 Alzheimer's disease; Parkinsons; as6 - Immunization history:: Adult Immunizations unknown. - Social history:: Smoking status: unknown. - Immunization history: Last tetanus immunization: unknown. Screenin:35 Abuse screen: Denies threats or abuse. Denies injuries from another. Nutritional as6 screening: No deficits noted. Tuberculosis screening: No symptoms or risk factors identified. Fall Risk Fall in past 12 months (25 points). Secondary diagnosis (15 points) Alzheimer's, IV access (20 points). Ambulatory Aid- Gait- Impaired (20 pts.). Mental Status- Overestimates/Forgets Limitations (15 pts.). Total Cruz Fall Scale indicates High Risk Score (45 or more points). Fall prevention measures have been instituted. Side Rails Up X 2 Frequent Obs/Assessments Occuring. Primary Survey: 06:34 NO uncontrolled hemorrhage observed. A: The patient needs verbal stimulation to as6 respond. Airway: patent. Breathing/Chest: Respiratory pattern: regular, Respiratory effort: spontaneous. Circulation: Skin color: pink, Skin temperature: warm. Disability Alert. Exposure/Environment: A warming method has been applied: A warm blanket has been provided to the patient. Reassessment Airway Airway Patent Breathing/Chest Respiratory pattern Regular Respiratory effort Spontaneous Circulation Color [place] Disability Alert. Secondary Survey: 10:00 HEENT: Head Other laceration to occipital region-bleeding controlled. Gastrointestinal: jg9 No deficits noted. : No deficits noted. Musculoskeletal: No deficits noted. Assessment: 06:26 General: Appears in no apparent distress. Behavior is calm. Pain: Unable to use pain as6 scale. Patient is disoriented. Neuro: Level of Consciousness is awake, confused, Oriented to pt not answering questions. pt moaning . Cardiovascular: Capillary refill < 3 seconds Patient's skin is warm and dry. Edema BLE. Respiratory: Airway is patent Trachea midline Respiratory effort is even, unlabored, Respiratory pattern is regular, symmetrical. Derm: Wound noted scalp Other: drsg to head. unable to visualize wound at this time. 07:00 Reassessment: No changes from previously documented assessment. General: reviewed face as6 sheet from [facility]. pt is hospice, DNR . 07:40 General: Appears in no apparent distress. Behavior is calm. Pain: Unable to use pain ww scale. Patient is disoriented. Neuro: Level of Consciousness is awake. Cardiovascular: Patient's skin is warm and dry. Respiratory: Airway is patent Respiratory effort is even, unlabored, Respiratory pattern is regular, symmetrical. Derm: Wound noted occipital area. Injury Description: Laceration sustained to occipital area. 08:15 Reassessment: Patient appears in no apparent distress at this time. No changes from ww previously documented assessment. cleaned head laceration. 09:08 Reassessment: Patient appears in no apparent distress at this time. No changes from ww previously documented assessment. Patient and/or family updated on plan of care and expected duration. Pain level reassessed. Left message with patients facility that he is returning back and will need to have his sutures removed in 7-10 days. EMS notified of transfer. 09:11 Reassessment: Spoke with Sanjuana and [facility] nursing and said we need to fax his records to [phone] before they can accept him back and then they will send an EMS to pick him up. 10:52 Reassessment: Spoke with Sanjuana at [facility] and she will contact EMS. ww 10:56 Reassessment: Sanjuana called and stated EMS will be there in 30-40 minutes. ww 11:09 Reassessment: Patient appears in no apparent distress at this time. No changes from ww previously documented assessment. Patient and/or family updated on plan of care and expected duration. Pain level reassessed. head wrapped and patient eating jello and apple juice. Vital Signs: 06:18 BP 155 / 78; Pulse 75; Resp 18 S; Temp 97.7(TE); Pulse Ox 95% on R/A; Weight 72.12 kg; as6 06:56 BP 147 / 70; Pulse 68; Resp 18 S; Pulse Ox 97% on R/A; as6 07:45 BP 146 / 68; Pulse 61; Resp 17; Pulse Ox 99% on R/A; ww 08:30 BP 146 / 64; Pulse 63; Resp 18; Pulse Ox 97% on R/A; ww 09:13 BP 142 / 73; Pulse 68; Resp 16; Pulse Ox 99% on R/A; ww 10:30 BP 142 / 73; Pulse 66; Resp 20 S; Pulse Ox 100% on R/A; jg9 [place] Coma Score: 06:56 Eye Response: to voice(3). Verbal Response: confused(4). Motor Response: localizes as6 pain(5). Total: 12. Trauma Score (Adult): 06:56 Eye Response: to voice(0); Verbal Response: confused(1); Motor Response: localizes as6 pain(1); Systolic BP: > 89 mm Hg(4); Respiratory Rate: 10 to 29 per min(4); Berkley Score: 12; Trauma Score: 10 ED Course: 06:17 Patient arrived in ED. as6 06:23 Triage completed. as6 06:24 Arm band placed on. as6 06:26 Ronald Hernandez, RN is Primary Nurse. as6 06:30 Chad Marte MD is Attending Physician. 7 06:57 Placed in gown. Bed in low position. Call light in reach. Side rails up X2. Pulse ox as6 on. NIBP on. Warm blanket given. 06:57 Patient maintains SpO2 saturation greater than 95% on room air. Thermoregulation: warm as6 blanket given to patient. 07:01 C Spine Wo Con In Process Unspecified. EDMS 07:01 Head Brain Wo Cont In Process Unspecified. EDMS 08:19 Primary Nurse role handed off by Ronald Hernandez RN 08:27 Cleveland Aaron PA is PHCP. [facility] 09:07 Iris Bettencourt, RN is Primary Nurse. 11:17 Wound care: located on occipital area and scalp was cleaned with soap and water, jg9 dressed with 4X4s, Kerlix, Patient tolerated well. 11:19 No provider procedures requiring assistance completed. jg9 11:21 IV discontinued. jg9 Administered Medications: No medications were administered Intake: 06:56 PO: 0ml; Total: 0ml. as6 Outcome: 09:00 Discharge ordered by . [facility] 11:19 Discharged to detention. Report called to [facility] report called to facility by kendrick Aranda RN 11:20 Patient's length of stay in the Emergency Department was greater than 2 hours. awaiting jg9 imaging results and wound carePatient's length of stay extended due to 11:21 Condition: stable jg9 11:21 Discharge instructions given to detention. jg9 11:21 Patient left the ED. jg9 Signatures: Dispatcher [employer] EDMS Agnes Alexandra Joel, PA PA jmm Holmes, Maurice, MD MD [facility] Ronald Hernandez RN RN as6 Patria Lai RN RN jg9 Iris Bettencourt, RN RN ww
--- NOTE | 2021-08-09 09:01 | EDPHYS ---
Physician Documentation [facility] Name: Silas Kirk Age: 89 yrs Sex: Male : 1930 Arrival Date: 08/09/2021 Time: 06:17 Bed 3 Private MD: ED Physician Chad Marte HPI: 08/09 06:31 This 89 yrs old Male presents to ER via EMS with complaints of Fall. 7 06:31 Details of fall: The patient fell from an upright position, while standing. Onset: The 7 symptoms/episode began/occurred this morning, today. Associated injuries: The patient sustained injury to the head, laceration, of the posterior scalp. Severity of symptoms: At their worst the symptoms were moderate, earlier today, in the emergency department the symptoms are unchanged. 06:31 Unable to obtain HPI due to baseline dementia. mh7 Historical: - Allergies: 06:23 Aspirin; as6 06:23 Milk Containing Products; as6 - PMHx: 06:23 Alzheimer's disease; Parkinsons; as6 - Immunization history:: Adult Immunizations unknown. - Social history:: Smoking status: unknown. - Immunization history: Last tetanus immunization: unknown. ROS: 06:31 Unable to obtain ROS due to baseline dementia. mh7 Exam: 06:31 Constitutional: This is a well developed, well nourished patient who is awake, alert, mh7 and in no acute distress. Eyes: Pupils equal round and reactive to light, extra-ocular motions intact. Lids and lashes normal. Conjunctiva and sclera are non-icteric and not injected. Cornea within normal limits. Periorbital areas with no swelling, redness, or edema. Neck: Trachea midline, no thyromegaly or masses palpated, and no cervical lymphadenopathy. Supple, full range of motion without nuchal rigidity, or vertebral point tenderness. No Meningismus. Chest/axilla: Normal chest wall appearance and motion. Nontender with no deformity. No lesions are appreciated. Cardiovascular: Regular rate and rhythm with a normal S1 and S2. No gallops, murmurs, or rubs. Normal PMI, no JVD. No pulse deficits. Respiratory: Lungs have equal breath sounds bilaterally, clear to auscultation and percussion. No rales, rhonchi or wheezes noted. No increased work of breathing, no retractions or nasal flaring. Abdomen/GI: Soft, non-tender, with normal bowel sounds. No distension or tympany. No guarding or rebound. No evidence of tenderness throughout. Back: No spinal tenderness. No costovertebral tenderness. Full range of motion. MS/ Extremity: Pulses equal, no cyanosis. Neurovascular intact. Full, normal range of motion. 06:31 Neuro: Orientation: unable to test, the patient has a history of dementia, Mentation: unable to test, the patient has a history of dementia, Memory: unable to test, the patient has a history of dementia, Cranial nerves: unable to test, the patient has a history of dementia, Cerebellar function: unable to test, the patient has a history of dementia, Motor: moves all fours, Sensation: no obvious gross deficits, Gait: not tested. seizure activity, is not displayed by the patient, Abnormal movements: there are no abnormal movements. Vital Signs: 06:18 BP 155 / 78; Pulse 75; Resp 18 S; Temp 97.7(TE); Pulse Ox 95% on R/A; Weight 72.12 kg; as6 06:56 BP 147 / 70; Pulse 68; Resp 18 S; Pulse Ox 97% on R/A; as6 07:45 BP 146 / 68; Pulse 61; Resp 17; Pulse Ox 99% on R/A; ww 08:30 BP 146 / 64; Pulse 63; Resp 18; Pulse Ox 97% on R/A; ww 09:13 BP 142 / 73; Pulse 68; Resp 16; Pulse Ox 99% on R/A; ww 10:30 BP 142 / 73; Pulse 66; Resp 20 S; Pulse Ox 100% on R/A; jg9 [place] Coma Score: 06:56 Eye Response: to voice(3). Verbal Response: confused(4). Motor Response: localizes as6 pain(5). Total: 12. Trauma Score (Adult): 06:56 Eye Response: to voice(0); Verbal Response: confused(1); Motor Response: localizes as6 pain(1); Systolic BP: > 89 mm Hg(4); Respiratory Rate: 10 to 29 per min(4); [place] Score: 12; Trauma Score: 10 Laceration: 08:23 Wound Repair of 2cm ( 0.8in ) subcutaneous laceration to scalp. Distal [facility] neuro/vascular/tendon intact. Anesthesia: Local anesthetic administered with 3 mls of 1% lidocaine w/ Epi. Wound prep: Simple cleansing with betadine by me. Skin closed with 1 3-0 Prolene using figure 8. Patient tolerated well. MDM: 08:27 Patient medically screened. [facility] 08:59 Data reviewed: vital signs, nurses notes. Counseling: I had a detailed discussion with [facility] the patient and/or guardian regarding: the historical points, exam findings, and any diagnostic results supporting the discharge/admit diagnosis, radiology results, the need for outpatient follow up, to return to the emergency department if symptoms worsen or persist or if there are any questions or concerns that arise at home. 08/09 06:36 Order name: C Spine Wo Con; Complete Time: 07:39 EDMS 08/09 06:37 Order name: Head Brain Wo Cont; Complete Time: 07:39 EDMS Administered Medications: No medications were administered Disposition: 19:04 Co-signature as Attending Physician, Chad Marte MD I agree with the assessment and [facility] plan of care. Disposition Summary: 08/09/21 09:00 Discharge Ordered Location: Home [facility] Condition: Stable [facility] Diagnosis - Unspecified injury of head, initial encounter jmm - Scalp Laceration [facility] Followup: [facility] - With: Private Physician - When: 1 - 2 days - Reason: Recheck today's complaints, Continuance of care, Re-evaluation by your physician Discharge Instructions: - Discharge Summary Sheet jmm - Head Injury, Adult jmm - Facial Laceration [facility] Forms: - Medication Reconciliation Form [facility] - Thank You Letter [facility] - Antibiotic Education jm - Prescription Opioid Use [facility] Signatures: Dispatcher [employer] EDMS Cleveland Aaron PA PA jmm Holmes, Maurice, MD MD mh7 Ronald Hernandez, RN RN as6 Corrections: (The following items were deleted from the chart) 06:37 06:31 Head C Spine MPR Wo Con+CT.RAD.BRZ ordered. EDMS EDMS
[2021-08-09 14:01] VITALS: TEMP 97.7
[2021-08-09 14:06] VITALS: BP 142/73
[2021-08-09 14:08] VITALS: O2SAT 100
== END 2021-08-09 11:21 | disposition home or self-care (01) ==
LOC: ER 06:16
PROC: 0JQ00ZZ Repair Scalp Subcutaneous Tissue and Fascia, Open Approach (ICD-10-PCS; principal; 2021-08-09)
DX: S01.01XA Laceration without foreign body of scalp, initial encounter (principal); S09.90XA Unspecified injury of head, initial encounter; W19.XXXA Unspecified fall, initial encounter; G30.9 Alzheimer's disease, unspecified; F02.80 Dementia in other diseases classified elsewhere, unspecified severity, without behavioral disturbance, psychotic disturbance, mood disturbance, and anxiety; G20 Parkinson's disease; Z88.6 Allergy status to analgesic agent; Z91.011 Allergy to milk products
CPT/HCPCS: 70450; 72125; 99284